=== PATIENT | female | born 1990 | race Caucasian/White ===

== ENCOUNTER → 2018-03-12 | Outpatient (CLI) | payer OTHER | END | disposition home or self-care (01) | LOC: C.LAB1850 16:59 | PROVIDERS: ATTEND Obstetrics & Gynecology | DX: Z34.82 Encounter for supervision of other normal pregnancy, second trimester (principal); Z34.81 Encounter for supervision of other normal pregnancy, first trimester ==

== ENCOUNTER 2018-03-31 14:34 | Emergency (ER) | payer OTHER ==
[~2018-03-31] VITALS: Ht 157.5 cm; Wt 61.3 kg
[2018-03-31 14:57] VITALS: TEMP 37; Ht 157.5 cm; Wt 61.3 kg
[2018-03-31] MEDS ORDERED: CEPH500C PO (16:08)
[2018-03-31 16:56] VITALS: BP 123/81; PULSE 91; O2SAT 99
--- NOTE | 2018-03-31 21:12 | EMERGENCY ROOM VISIT NOTE ---
History First contact with patient: 15:12 (Gurpreet Evangelista,P.A.) First contact with patient: 15:12 (Mu Jimenes M.D.) Chief Complaint: TOE PAIN, INJURY Stated Complaint: TOE INJURY, UTI History of Present Illness The patient is a 27 year old white female who presents to the Emergency Room with complaints of UTI symptoms for the past day and right great toe pain after hitting the toe when opening a door. She states the toenail seem to lift off and since then it has been draining a clear fluid around the edges. She would like to be sure it is not infected. No other toes are involved. She denies any foot pain. Her only pain is in the great toe. No prior history of toe injury. Her urinary symptoms consist of urgency, frequency, and burning. She is 19 weeks . She denies any ronel blood. No back pain. No fevers or chills. No nausea or vomiting. (Gurpreet Evangelista,P.A.) Review of Systems REVIEW OF SYSTEM: HEENT: No dizziness, visual problems, hearing loss, or tinnitus. There is no difficulty swallowing and no oral lesions are present. LYMPH: No adenopathy. PULMONARY: No cough, shortness of breath, sputum production or hemoptysis. CARDIOVASCULAR: No chest pain, palpitations, shortness of breath or peripheral edema. GASTROINTESTINAL: No diarrhea, constipation, nausea, vomiting, or abdominal pain. GENITOURINARY: Positive dysuria, frequency, urgency but no hematuria today. NEUROLOGIC: No weakness, muscle tenderness, epilepsy or history of neurological problems. MUSCULOSKELETAL: No history of joint tenderness/swelling. No history of arthritis or arthralgias. SKIN: No rashes or lesions. PSYCHIATRIC: No history of depression or mental illness. ENDOCRINE: No history of diabetes, thyroid disorders, or abnormal hair growth. (Gurpreet Evangelista.,P.A.) Family History Unremarkable (Gurpreet Evangelista,P.A.) Social History Smoking Status: Never Smoker Smokeless Tobacco Use: No Alcohol Use: none Drug Use: none Marital Status: Housing Status: lives with family Occupation Status: employed (Gurpreet Evangelista,P.A.) Current/Historical Medications Scheduled Cephalexin Monohydrate (Keflex), 500 MG PO QID Physical Exam Vital Signs Date Time Temp Pulse Resp B/P (MAP) Pulse Ox O2 Delivery O2 Flow Rate FiO2 03/31/18 16:56 91 18 123/81 99 03/31/18 14:57 37.0 110 18 125/86 98 Room Air (Mu Jimenes M.D.) Physical Exam General: Well-developed, well-nourished, young petite white female, in no acute distress. Sitting on a bed. Alert and oriented. Skin: Warm and dry with good turgor. No rashes or lesions. No ecchymosis or erythema. The patient is not diaphoretic. No abrasions. Right great toenail is loose but in place. There is clear serous fluid draining around the edges. No purulence. Heart: Heart RRR. No MGR. Peripheral pulses are 2+. Lungs: Lungs are clear to auscultation. No crackles rhonchi or wheezing. Good air movement. The patient is able to take a deep breath. Abdomen: Abdomen was inspected, auscultated, and palpated. Visibly . Bowel sounds present x 4. Soft, suprapubic discomfort to palpation. No hepato- splenomegaly. No masses noted. No rebound. No CVA tenderness. Musculoskeletal: Patient has intact motor function to her toes. No pain with palpation over the hindfoot, midfoot, or forefoot. No pain with palpation over the second through fifth digits. She does have some discomfort with palpation over the nail itself but no pain with palpation over the proximal phalanx or distal phalanx of the great toe. Intact flexion and extension to the great toe. Ambulatory with no significant limp. Neurologic: Gross sensation is intact across the foot and toes by soft touch. (Gurpreet Evangelista,P.A.) Medical Decision & Procedures Laboratory Results Test 03/31/18 15:23 Urine Color YELLOW Urine Appearance TURBID (CLEAR) Urine pH 5.0 (4.5-7.5) Urine Specific [place] 1.016 (1.000-1.030) Urine Protein 1+ (NEG) Urine Glucose (UA) NEG (NEG) Urine Ketones NEG (NEG) Urine Occult Blood 3+ (NEG) Urine Nitrite NEG (NEG) Urine Bilirubin NEG (NEG) Urine Urobilinogen NEG (NEG) Urine Leukocyte Esterase LARGE (NEG) Urine WBC (Auto) >30 /hpf (0-5) Urine RBC (Auto) >30 /hpf (0-4) Urine Hyaline Casts (Auto) 1-5 /lpf (0-5) Urine Epithelial Cells (Auto) >30 /lpf (0-5) Urine Bacteria (Auto) 3+ (NEG) Urine Pathogenic Casts /lpf (0) Urine Yeast (Auto) PRESENT (NONE PRSENT) (Mu Jimenes M.D.) UA obtained today shows WBCs, RBCs, bacteria, and yeast. This was sent for culture. (Gurpreet Evangelista,P.A.) ED Course Patient was educated regarding today's findings. Conservative care measures were discussed. She was reassured that I do not suspect fracture of the great toe. She has avulsed the nail. It is currently in place. She may continue to wrap it with nonstick tape to keep it in place until a new nail grows out. Continue to cleanse with soap and water daily and cover with triple antibiotic ointment. In regards to her UTI, she was prescribed Keflex 500 mg 3 times a day 5 days due to her current . She is allergic to Bactrim. 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 Tylenol every 6 hours as needed for discomfort. Avoid Motrin. Return to the ED for any acute worsening of symptoms. (Gurpreet Evangelista,P.A.) Medical Decision Possibility of toe fracture, laceration, kidney stone, UTI, and nephritis were considered among others (Gurpreet Evangelista.,P.A.) Medication Reconcilliation Current Medication List: was personally reviewed by me (Gurpreet Evangelista.,P.A.) Blood Pressure Screening Patient's blood pressure: Normal blood pressure (Gurpreet Evangelista,P.A.) Impression Primary Impression: Contusion of great toe with damage to nail Additional Impression: UTI (urinary tract infection) in in second trimester Departure Information Dispostion Home / Self-Care Condition GOOD Prescriptions Cephalexin Monohydrate (Keflex) 500 Mg Cap 500 MG PO QID, #28 CAP Prov: Gurpreet Evangelista,P.A. 8/25/18 Forms WORK / SCHOOL INSTRUCTIONS, HOME CARE DOCUMENTATION FORM, TYLENOL USE, IMPORTANT VISIT INFORMATION Patient Instructions My [facility] [employer] Additional Instructions Keflex 1 pill 4 times a day times 7 days Follow-up with your PCP this week Maintain hydration Cover the toenail with triple antibiotic ointment and tape in place Avoid further trauma Tylenol every 6 hours as needed for discomfort Ice and elevate intermittently as needed for any discomfort/swelling Return to the ED as needed for any other concerns Problem Qualifiers Primary Impression: Contusion of great toe with damage to nail Encounter type: initial encounter Laterality: right Qualified Codes: S90.211A - Contusion of right great toe with damage to nail, initial encounter
--- NOTE | 2018-04-02 20:01 | Pharmacy Progress Note ---
ED Pharmacist Culture FollowUp Date of Service: Apr 02, 2018. OF NOTE THIS PATIENT IS 19 WEEKS Patient was sent home with a prescription for cephalexin which will not cover the Staph saprophyticus isolated in her urine culture. Called patient. Reports that the pain in her toe has decreased, but her urinary symptoms have not significantly improved. I inquired about back pain and patient noted that she does have back pain but she also has a history of back surgery. She notes the current pain is different than her usual back pain and is located on "the sides" of her back. I spoke with Dr. Ramos r/e the above who recommended the patient return to the ED to be re-evaluated. I strongly encouraged the patient to return to the ED tonight for re- evaluation. At that time, patient also noted that she may be "overthinking" this, but that she normally feels a "significant amount" of movement, which may have decreased. I once again stressed the importance of returning to the ED for re-evaluation immediately. Patient acknowledged understanding and noted intent to return to ED tonight.
== END 2018-03-31 16:49 | disposition home or self-care (01) ==
LOC: C.EDB 14:36 → C.EDD 16:49
DX: S90.211A Contusion of right great toe with damage to nail, initial encounter (principal); W22.8XXA Striking against or struck by other objects, initial encounter; O23.42 Unspecified infection of urinary tract in pregnancy, second trimester; Z3A.19 19 weeks gestation of pregnancy; Z88.1 Allergy status to other antibiotic agents

== ENCOUNTER 2018-04-02 20:30 | Outpatient (CLI) | payer OTHER ==
[~2018-04-02 20:30] MED LIST: CEPH500C PO
== END 2018-04-02 20:58 | disposition home or self-care (01) ==
LOC: C.OPB 20:30 → C.LD 20:30 → C.OPB 20:58
PROVIDERS: ATTEND Obstetrics & Gynecology
DX: O23.42 Unspecified infection of urinary tract in pregnancy, second trimester (principal); Z3A.19 19 weeks gestation of pregnancy

== ENCOUNTER 2018-08-13 07:41 | Inpatient (IN) ==
[2018-08-13] MEDS ORDERED: OXYTOCIN 30 UNITS/500 ML BAG IV PRN ×3 (08:10→15:49)
[2018-08-13] MEDS ORDERED: LACTATED RINGER'S 1,000 ML IV PRN ×3 (08:10→13:49)
[2018-08-13 08:31] LABS: Hematocrit (blood only) 32.2 % (37-47); Hemoglobin 10.5 g/dL (12.0-16.0); Mean Corpuscular Volume 77.6 fL (80-100); Mean Platelet Volume 9.5 fL (7.4-10.4); Platelet Count 214 K/uL (130-400); RDW Coefficient of Variation 16.1 % (11.5-14.5); Red Blood Count 4.15 M/uL (4.2-5.4); White Blood Count 13.06 K/uL (4.8-10.8)
[2018-08-13 08:35] LABS: Mean Corpuscular Hgb Conc 32.6 g/dL (32-36)
--- NOTE | 2018-08-13 09:22 | History & Physical Report ---
Date of Service August 13, 2018 Assessment & Plan (1) Encounter for induction of labor: 27 year old, @ 38.1 weeks gestation with complication of chronic HTN; Gestational DM requiring insulin and well controlled. She is A+ , GBS (-), rubella immune. Here for scheduled IOL for cHTN. Plan pitocin augmentation, arom as appropriate, patient's pain management plan is to defer epidural but will be available upon request Fetus category 1 (2) 38 weeks gestation of : continue with planned induction of labor (3) Insulin controlled gestational diabetes mellitus (GDM) in third trimester: continue with home meds, Novolin 8qHS and Novolog 10 units TID monitor BSGs (4) Chronic hypertension affecting : vitals stable here, continue to monitor History of Present Illness Chief Complaint: Induction of Labor Primary Care Provider: NO PCP Ebony Frostashleigh is 27 year old, @ 38.1 weeks gestation with EDC of via U/S, with complication of chornic HTN; Gestational DM requiring insulin and well controlled. She is A+, GBS (-), rubella immune. She states that she still feels baby moving, denies vaginal bleeding or fluid from vagina. Pain management plan is to defer epidural. She has had care with [facility] starting at 7 weeks x 17 appointments. She states her GDM has been well controlled with insulin, denies any episodes of hypoglycemia. She notes a recent upper respiratory cold that has resolved. She does have a history of Bipolar disorder that was treated with Lamictal but discontinued during approximately 12 weeks gestation. Labs: A+/ab-/rubella immune/rpr non-reactive/hepB negative/GC negative?GBS negative Allergies Allergy/AdvReac Type Severity Reaction Status Date / Time Sulfa (Sulfonamide Allergy Intermediate Hives Verified 08/13/18 09:53 Antibiotics) Home Medications Home Medications Medication Instructions Recorded Confirmed Type ferrous sulfate 0 mg PO DAILY 06/05/18 08/13/18 History vit-iron fum-folic ac 1 tab PO DAILY 06/05/18 08/13/18 History [ Vitamin] Novolin N NPH U-100 Insulin 8 units SC HS 08/13/18 08/13/18 History Novolog Flexpen U-100 Insulin 10 unit SC TID 08/13/18 08/13/18 History Patient History Medical History Bipolar 1 disorder was on medications but stopped taking due to . Wants to breastfeed so does not want to start medications again until she is done Suicidal ideations several in past; last ideation was May 2018- pt was hospitalized. Pt says it is situational and this past incident was relationship related. Pt says this is better now. Anxiety Depression Fibroadenoma of left breast Removed ~3 years ago Gestational diabetes Insulin controlled H/O tooth extraction H/O wisdom tooth extraction Heart murmur history of heart murmur Hypertension Chronic Hypertension prior to ; was on Metoprolol in past but bipolar meds lowered her BP. Migraines Tachycardia Surgical History Hx of lumbar discectomy December 2016 Family History Father HTN (hypertension) Mother Colon cancer Other Family history non-contributory Social History marital status: Single Current Living Situation: Alone Current Living Situation Comment: lives with son Feels Safe at Home: Yes Safety Concerns: Feels Safe At This Time Smoking Status: Former smoker Tobacco Type: cigarettes Do You Dip or Chew Tobacco: No Smoking End Date: September 2016 Hx Alcohol Use: No Hx Substance Use: No Beliefs That Will Affect Care: None Preferred Language: Georgian Communication Ability: Effective Liquor Rectifier Required: No OB History @ 38.1 weeks gestation 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 History No history of STDs or abnormal paps Review of Systems All systems reviewed & are unremarkable except as noted in HPI & below Physical Exam 2 Vital Signs (Past 24 Hours): Last Vital Signs Temp 36.6 C 08/13/18 08:05 Pulse 111 H 08/13/18 08:15 Resp 20 08/13/18 08:05 BP 135/89 08/13/18 08:15 Constitutional: WD/WN, vitals as above cooperative Eyes: + anicteric sclerae Neck: normal visual inspection Respiratory: normal respiratory effort, lungs clear to auscultation Cardiovascular: RRR, no murmur, no edema Gastrointestinal (Abdomen): Percussion/Palpation: abdomen nontender Gravid Skin: no rashes, warm and dry Neurologic: moves all extremities and awake Psychiatric: Orientation: alert Eye Contact: good eye contact Affect: euthymic affect Genitourinary: OB Exam Monitor Tracing: + external FHT monitor used, + external uterine monitor used and + category I Cervical Exam performed by Dr. Kirkland with findings of 1+cm/50%/-2 Results & Data Laboratory Results Laboratory Results - last 24 hr 08/13/18 08:16 WBC 13.06 H RBC 4.15 L Hgb 10.5 L Hct 32.2 L MCV 77.6 L MCH 25.3 MCHC 32.6 RDW Std Deviation 46.0 RDW Coeff of Renee 16.1 H Plt Count 214 MPV 9.5 Medications Administered Lactated Ringer's (Lr) 1,000 mls @ 125 mls/hr IV .Q8H TRAVIS Stop: 08/15/18 08:14 Last Admin: 08/13/18 09:25 Dose: 125 mls/hr Oxytocin (Pitocin) 30 units in 500 mls @ 1 mls/hr IV .Q24H PRN; Protocol PRN Reason: Labor Induction/Augmentation Stop: 08/15/18 08:09 Last Admin: 08/13/18 09:25 Dose: 0.06 units/hr, 1 mls/hr Code Status & VTE Plan Code Status Full Code Monitoring External Monitor Baseline 145 w/moderate variability, accels present, no decels Tocodynamometer mild irregular contractions Supervising Physician Co-Signing Physician Notes Resident Physician Supervision Note: I was present with Dr. Esdras Coleman during the history and exam. I discussed the case with the resident and agree with the findings and plan as documented in the note. Any exceptions or clarifications are listed here: [None] Documented By: Catherine Kirkland MD, FACOG
[2018-08-13] MEDS: LACTATED RINGER'S 1,000 ML IV SCH ×2 (09:25→13:00)
[2018-08-13] MEDS ORDERED: BUPIVACAINE 0.25% 30 ML VIAL ONE (12:25)
[2018-08-13] MEDS ORDERED: ePHEDrine sulfate 50 MG/ML AMP ONE (12:26)
[2018-08-13] MEDS ORDERED: fentaNYL citrate 100 MCG/2 ML VIAL ONE (12:26)
[2018-08-13] MEDS ORDERED: fentaNYL 2MCG/ML ROPIV 1.25MG/ML 100 ML BAG EPI ONE (12:27)
--- NOTE | 2018-08-13 13:16 | Anesthesiology Consultation ---
Date of Service August 13, 2018 Assessment & Plan (1) Encounter for pre-operative examination: Chart Review Chart Review: Patient NOT seen in Pre Admission Testing and Acceptable Risk for Labor Epidural Consults Requested none ASA ASA2 Proposed Anesthesia Anesthesia Type: Labor Epidural Risk / Benefits Reviewed With: PT / POA / Parent / Guardian, Accepts Plan and Informed Consent Obtained NPO Date Last Intake of Fluids: 08/13/18 Time Last Intake of Fluids: 13:15 Date Last Intake of Solids: 08/13/18 Time Last Intake of Solids: 06:15 History Height/Weight Height: 5 ft 2 in Weight: 70.76 kg Allergies Allergy/AdvReac Type Severity Reaction Status Date / Time Sulfa (Sulfonamide Allergy Intermediate Hives Verified 08/13/18 09:53 Antibiotics) Medications Home Medications Medication Instructions Recorded Confirmed Last Taken ferrous sulfate 0 mg PO DAILY 06/05/18 08/13/18 08/10/18 22:00 vit-iron fum-folic ac 1 tab PO DAILY 06/05/18 08/13/18 08/12/18 18:00 [ Vitamin] Novolin N NPH U-100 Insulin 8 units SC HS 08/13/18 08/13/18 08/12/18 22:00 Novolog Flexpen U-100 Insulin 10 unit SC TID 08/13/18 08/13/18 08/12/18 19:30 10 units Active Medications Generic Name Dose Route Start Last Admin Trade Name Freq PRN Reason Stop Dose Admin Lactated Ringer's 1,000 mls @ 125 mls/hr 08/13/18 08:15 08/13/18 13:00 Lr IV 08/15/18 08:14 125 mls/hr .Q8H TRAVIS Administration Oxytocin 30 units in 500 mls @ 9 mls/hr 08/13/18 08:10 08/13/18 12:00 Pitocin IV 08/15/18 08:09 0.54 units/hr .Q24H PRN 9 mls/hr Labor Induction/Augmentation Titration Protocol 0.54 UNITS/HR Past Medical History Medical History Bipolar 1 disorder was on medications but stopped taking due to . Wants to breastfeed so does not want to start medications again until she is done Suicidal ideations several in past; last ideation was May 2018- pt was hospitalized. Pt says it is situational and this past incident was relationship related. Pt says this is better now. Anxiety Depression Fibroadenoma of left breast Removed ~3 years ago Gestational diabetes Insulin controlled H/O tooth extraction H/O wisdom tooth extraction Heart murmur history of heart murmur Hypertension Chronic Hypertension prior to ; was on Metoprolol in past but bipolar meds lowered her BP. Migraines Tachycardia Past Family History Family History Father HTN (hypertension) Mother Colon cancer Other Family history non-contributory Past Surgical History Surgical History Hx of lumbar discectomy December 2016 Social History Smoking Status: Former smoker tobacco type: cigarettes Do You Dip or Chew Tobacco: No Smoking End Date: September 2016 Hx Alcohol Use: No Hx Substance Use: No Physical Exam Vital Signs Last Vital Signs Temp 36.6 C 08/13/18 08:05 Pulse 100 H 08/13/18 13:12 Resp 20 08/13/18 10:29 BP 129/79 08/13/18 13:12 Pulse Ox 100 08/13/18 13:08 ENMT Mouth: no dentition abnormality Thyromental Distance: > or= 3.5 Finger Breadths Mallampati Class: II Neck normal visual inspection; neck extension not limited Respiratory normal respiratory effort Auscultation: lungs clear to auscultation bilaterally Cardiovascular Rate/Rhythm: regular rate and regular rhythm Musculoskeletal Spine: normal cervical ROM Psychiatric Orientation: alert and oriented x 3 Testing Laboratory Results 08/13/18 08:16
[2018-08-13] MEDS ORDERED: fentaNYL 2MCG/ML ROPIV 1.25MG/ML 100 ML BAG EPI PRN (13:49)
[2018-08-13] MEDS ORDERED: NALOXONE HCL 0.4 MG/1 ML VIAL/CARP IV PRN (13:49)
[2018-08-13] MEDS ORDERED: PROMETHAZINE HCL 6.25 MG in SODIUM CHLORIDE 0.9% 50 ML IV PRN (13:49)
[2018-08-13] MEDS ORDERED: ONDANSETRON INJ 2 MG/ML 2 ML VIAL IV PRN (13:49)
[2018-08-13] MEDS ORDERED: NALBUPHINE HCL INJ 10 MG/ML AMP IV PRN (13:49)
[2018-08-13] MEDS ORDERED: NALOXONE HCL 1 MG in SODIUM CHLORIDE 0.9% 1000ML 1,000 ML IV PRN (13:49)
[2018-08-13] MEDS ORDERED: ePHEDrine sulfate 50 MG/ML AMP IV PRN (13:49)
[2018-08-13] MEDS ORDERED: DiphenhydrAMINE HCL 50 MG/ML VIAL IV PRN (13:49)
[2018-08-13] MEDS ORDERED: HYDROCORTISONE ACETATE 25 MG SUPP PR PRN (15:49)
[2018-08-13] MEDS ORDERED: BENZOCAINE 20% AER SPR 82.5 GM CAN EXT PRN (15:49)
[2018-08-13] MEDS ORDERED: SUPERCREAM 0.870% 15 GM JAR EXT PRN (15:49)
[2018-08-13] MEDS ORDERED: DIPHTHERIA/TETANUS/PERTUSSIS 0.5 ML SYR/VIAL IM ONE (15:49)
[2018-08-13] MEDS ORDERED: ACETAMINOPHEN 325 MG TAB PO PRN (15:49)
[2018-08-13 16:13] LABS: Base Excess Cord Arterial Bld -3.9 mEq/L (-9-1.8); CO2 Cord Arterial Blood 49 mmHg (39.1-73.5); HCO3 Cord Arterial Blood 23 mmol/L (19.7-28.5); pH Cord Arterial Blood 7.29 (7.1-7.38)
[2018-08-13 16:23] LABS: Base Excess Cord Venous Blood -2.3 mEq/L (-7.7-1.9); Cord Venous Blood HCO3 23 mmol/L (18.4-26.8); Cord Venous Blood PCO2 44 mmHg (30.4-57.2); Cord Venous Blood PO2 27 mmHg (14.1-43.3); Cord Venous Blood pH 7.35 (7.20-7.44)
--- NOTE | 2018-08-13 16:30 | Anesthesia Procedure Note ---
Date of Service August 13, 2018 Anesthesia Post Epidural Note Vital Signs Vital Signs: Temp Pulse Resp BP Pulse Ox 08/13/18 16:18 110 H 136/71 08/13/18 16:03 117 H 149/66 H 08/13/18 15:48 124 H 154/74 H 97 08/13/18 15:43 135 H 98 08/13/18 15:39 173 H 91 08/13/18 15:38 147 H 100 08/13/18 15:35 153 H 141/91 H 08/13/18 15:33 136 H 100 08/13/18 15:28 154 H 100 08/13/18 15:23 133 H 99 08/13/18 15:21 118 H 131/90 08/13/18 15:18 116 H 100 08/13/18 15:08 141 H 98 08/13/18 15:04 116 H 149/98 H 08/13/18 15:03 167 H 98 08/13/18 15:00 36.4 C L 130 H 18 97 08/13/18 14:58 125 H 99 08/13/18 14:53 118 H 98 08/13/18 14:49 139 H 124/78 08/13/18 14:48 138 H 97 08/13/18 14:43 147 H 98 08/13/18 14:38 120 H 98 08/13/18 14:34 129 H 134/88 08/13/18 14:33 180 H 98 08/13/18 14:28 148 H 99 08/13/18 14:23 149 H 98 08/13/18 14:19 136 H 129/77 92 08/13/18 14:18 128 H 98 08/13/18 14:13 121 H 97 08/13/18 14:08 155 H 99 08/13/18 14:05 146 H 126/98 91 08/13/18 14:03 168 H 99 08/13/18 13:58 121 H 100 08/13/18 13:53 114 H 99 08/13/18 13:49 116 H 109/62 08/13/18 13:48 98 H 97 08/13/18 13:43 130 H 99 08/13/18 13:38 94 H 98 08/13/18 13:34 109 H 20 121/62 08/13/18 13:33 115 H 98 08/13/18 13:28 123 H 99 08/13/18 13:27 96 H 122/63 08/13/18 13:23 101 H 118/62 97 08/13/18 13:18 106 H 98 08/13/18 13:16 103 H 124/73 08/13/18 13:14 94 H 132/78 08/13/18 13:13 102 H 98 08/13/18 13:12 100 H 129/79 08/13/18 13:10 96 H 139/83 08/13/18 13:08 93 H 148/84 H 100 08/13/18 13:07 96 H 142/84 H 08/13/18 13:03 102 H 99 08/13/18 12:58 97 H 99 08/13/18 12:57 103 H 90 08/13/18 12:53 90 97 08/13/18 12:48 91 H 99 08/13/18 12:43 89 99 08/13/18 12:42 91 H 153/92 H 08/13/18 12:07 117 H 121/84 08/13/18 10:30 101 H 133/90 08/13/18 10:29 20 08/13/18 09:29 96 H 128/76 08/13/18 08:15 111 H 135/89 08/13/18 08:05 36.6 C 100 H 20 145/74 H 08/13/18 08:00 100 H 145/74 H 08/13/18 07:47 36.6 C 20 Pain Intensity Bilateral Abdomen: Pain Intensity: 6 Notes Mental Status: alert / awake / arousable Nausea / Vomiting: adequately controlled Pain: adequately controlled Airway Patency, RR, SpO2: stable & adequate BP & HR: stable & adequate Hydration State: stable & adequate Anesthetic Complications: no major complications apparent Epidural: Removed without complications and With tip intact
--- NOTE | 2018-08-13 18:48 | Delivery Summary ---
DATE OF OPERATION: 08/13/2018 VAGINAL DELIVERY NOTE Ebony was induced on 08/13/2018 for chronic hypertension, gestational diabetes on insulin at 38 weeks and 1 day. Cervix was initially 2 cm. IV Pitocin started. AROM then performed for clear fluid. Patient requested epidural and became fully dilated and pushed over a baby over occiput anterior position. No nuchal cord. Mouth and nares suctioned. Clear fluid, gentle traction, no excessive force. Live vigorous . Cord clamped and cut. Cord gas is obtained. Cord blood obtained. Placenta removed with gentle traction. IV Pitocin started. Second degree tear repaired with 3-0 Vicryl. Sponge and instrument counts correct. IV Pitocin had been started after delivery of placenta. Estimated blood loss 300 mL. I attest to the content of the Intraoperative Record and any orders documented therein. Any exception s are noted below.
[2018-08-13] MEDS: IBUPROFEN 600 MG TAB PO PRN (21:54)
[2018-08-13] MEDS: DOCUSATE SODIUM 100 MG CAP PO SCH (22:17)
[2018-08-13] MEDS: OXYCODONE/ACETAMINOPHEN 5mg/325mg TAB PO PRN (23:42)
[2018-08-14] MEDS: IBUPROFEN 600 MG TAB PO PRN ×2 (04:36→11:53)
[2018-08-14] MEDS: OXYCODONE/ACETAMINOPHEN 5mg/325mg TAB PO PRN (05:28)
--- NOTE | 2018-08-14 07:35 | Obstetrical Progress Note ---
Date of Service <Esdras Coleman DO - Last Filed: 08/14/18 07:35> August 14, 2018 Assessment & Plan <Esdras Coleman DO - Last Filed: 08/14/18 07:35> (1) Spontaneous vaginal delivery: PPD#1 doing well and would like to be discharged home today reviewed discharge instructions continue routine post care until discharge home (2) Encounter for induction of labor: 27 year old, @ 38.1 weeks gestation with complication of chronic HTN; Gestational DM requiring insulin and well controlled. She is A+ , GBS (-), rubella immune. Here for scheduled IOL for cHTN. Plan pitocin augmentation, arom as appropriate, patient's pain management plan is to defer epidural but will be available upon request Fetus category 1 (3) 38 weeks gestation of : had planned induction of labor delivered via nvd (4) Insulin controlled gestational diabetes mellitus (GDM) in third trimester: monitor BSGs (5) Chronic hypertension affecting : vitals stable here, continue to monitor Subjective <Esdras Coleman DO - Last Filed: 08/14/18 07:35> Ambulation: ambulating normally Voiding: no voiding problems Passing Gas:: Yes Diet Tolerance:: regular diet Lochia:: Small Feeding Type:: breast feeding Ebony states she is doing well this morning, no fevers, chills, chest pain, shortness of breath, nausea or vomiting. Physical Exam <Esdras Coleman DO - Last Filed: 08/14/18 07:35> Vital Signs (Past 24 Hours) Last Vital Signs Temp 36.4 C L 08/14/18 04:30 Pulse 92 H 08/14/18 04:30 Resp 20 08/14/18 04:30 BP 140/91 08/14/18 04:30 Pulse Ox 98 08/14/18 04:30 Constitutional WD/WN, vitals as above cooperative Eyes + anicteric sclerae Neck normal visual inspection Respiratory normal respiratory effort, lungs clear to auscultation Cardiovascular RRR, no murmur, no edema Gastrointestinal (Abdomen) Percussion/Palpation: abdomen nontender fundus is firm non-tender, 4cm below umbilicus Skin no rashes, warm and dry Neurologic moves all extremities and awake Psychiatric Orientation: alert Eye Contact: good eye contact Affect: euthymic affect Results & Data <Esdras Coleman, DO - Last Filed: 08/14/18 07:35> Laboratory Results Laboratory Results - last 24 hr 08/13/18 08/13/18 08/13/18 08:16 09:03 12:40 WBC 13.06 H RBC 4.15 L Hgb 10.5 L Hct 32.2 L MCV 77.6 L MCH 25.3 MCHC 32.6 RDW Std Deviation 46.0 RDW Coeff of Renee 16.1 H Plt Count 214 MPV 9.5 Cord ABG pH Cord ABG pCO2 Cord ABG pO2 Cord ABG HCO3 Cord ABG Base Excess Cord ABG O2 Sat Cord VBG pH Cord VBG pCO2 Cord VBG pO2 Cord VBG HCO3 Cord VBG Base Excess Cord VBG O2 Sat Barometric Pressure Blood Gas Comments POC Glucose 95 79 08/13/18 08/13/18 08/13/18 14:42 15:39 15:39 WBC RBC Hgb Hct MCV MCH MCHC RDW Std Deviation RDW Coeff of Renee Plt Count MPV Cord ABG pH 7.29 Cord ABG pCO2 49 Cord ABG pO2 26.0 Cord ABG HCO3 23 Cord ABG Base Excess -3.9 Cord ABG O2 Sat 61.0 H Cord VBG pH 7.35 Cord VBG pCO2 44 Cord VBG pO2 27 Cord VBG HCO3 23 Cord VBG Base Excess -2.3 Cord VBG O2 Sat 63.0 Barometric Pressure 737.5 737.6 Blood Gas Comments FONTANEZ FONTANEZ POC Glucose 85 Medications Administered Acetaminophen (Tylenol) 650 mg PO Q6H PRN PRN Reason: Pain/BLEVINS/Fever Stop: 09/12/18 15:48 Last Admin: 08/13/18 16:07 Dose: 650 mg Cocaine HCl (Supercream 0.870%) 1 gm EXT BID PRN PRN Reason: Hemorrhoidal Inflammation Stop: 08/27/18 15:48 Last Admin: 08/13/18 23:32 Dose: 1 appl Docusate Sodium (Colace) 100 mg PO BID [facility] Stop: 09/12/18 20:59 Last Admin: 08/13/18 22:17 Dose: 100 mg Lactated Ringer's (Lr) 1,000 mls @ 125 mls/hr IV .Q8H TRAVIS Stop: 08/15/18 08:14 Last Admin: 08/13/18 13:00 Dose: 125 mls/hr Infusion: 08/13/18 13:00 Dose: 999 mls/hr Infusion: 08/13/18 12:40 Dose: 999 mls/hr Admin: 08/13/18 09:25 Dose: 125 mls/hr Ibuprofen (Motrin) 600 mg PO Q4H PRN PRN Reason: Pain/BLEVINS/Cramping/Fever Stop: 09/12/18 15:48 Last Admin: 08/14/18 04:36 Dose: 600 mg Admin: 08/13/18 21:54 Dose: 600 mg Oxycodone/Acetaminophen (Percocet 5mg/325mg) 1 tab PO Q4H PRN PRN Reason: Pain not relieved by... Stop: 08/27/18 15:48 Last Admin: 08/14/18 05:28 Dose: 1 tab Admin: 08/13/18 23:42 Dose: 1 tab <Keven Hough MD, FACOG - Last Filed: 08/14/18 07:51> Co-Signing Physician Notes Resident Physician Supervision Note: I interviewed and examined the patient. Discussed with [Jared] and agree with findings and plan as documented in the note. Any exceptions or clarifications are listed here: [None] Documented By: Keven Hough MD, FACOG
[2018-08-14 08:07] LABS: Hematocrit (blood only) 30.6 % (37-47); Hemoglobin 9.9 g/dL (12.0-16.0); Mean Corpuscular Hgb Conc 32.4 g/dL (32-36); Mean Corpuscular Volume 77.9 fL (80-100); Mean Platelet Volume 9.8 fL (7.4-10.4); Platelet Count 185 K/uL (130-400); RDW Coefficient of Variation 16.1 % (11.5-14.5); RDW Standard Deviation 46.1 fL (36.4-46.3); Red Blood Count 3.93 M/uL (4.2-5.4); White Blood Count 14.33 K/uL (4.8-10.8)
[2018-08-14] MEDS ORDERED: PRENATAL VITAMIN 1 TAB PO SCH (09:00)
[2018-08-14] MEDS: DOCUSATE SODIUM 100 MG CAP PO SCH (09:17)
--- NOTE | 2018-08-14 12:48 | Psychiatric Consultation ---
Date of Consultation August 14, 2018 Impression / Recommendations Impression 27 yo CF with h/o bipolar II, depression and anxiety, s/p delivery admitted for child . Psychiatry consulted for possible starting of medications that patient had stopped during . Patient seems to be with euthymic mood and declines medications at this time in favor of outpatient follow up. She denied Si/Hi/aVH and no major depressive, manic or psychotic symptoms were apparent. She was informed of recommendation and benefits of starting medications and also of the risks and benefits related to breast feeding. The patient declined medications. Boyfriend and father of the baby who was in room with permission of patient seemed to be supportive and both state he has a month off work to help with new mom transition. Outpatient follow up was offered to which patient agreed. 1. History of Bipolar II: - Offered Lamictal and Lexapro, patient declines medications at this time - No acute safety concerns and patient does not meet criteria for inpatient admission - Psych liason nurse to assist with scheduling outpatient follow up Inventory Assets Strengths: new child, future oriented, supportive relationship, employed Needs: meds, therapy Risk Factors Assessment Male: No : Yes Do You Have Access To A Gun?: No Health Problems: No Mental Health Diagnoses: Yes Substance Use Disorders: No Previous Attempt: Yes Previous Psychiatric Hospitalization: Yes Hopelessness: No Protective Factors Assessment Responsible for Young Children: Yes Employed: Yes Stable Relationships: Yes CPT Code 57415 Psych History Chief Complaint Consideration of medications. History of Present Illness 27 yo CF with h/o bipolar II, depression and anxiety, s/p delivery admitted for child . Psychiatry consulted for possible starting of medications that patient had stopped during . Patient stated that her mood has been stable and she denies any irritability, difficulty sleeping or any mood changes "aside from normal stuff with and ". She denied Si/Hi/aVH and states that the babies father is supportive. She states was taking Lamictal and Lexapro but that she does not want to start medications at this time. Would like to obtain a follow up for a couple weeks out and consider at that time. She states she would like to be back on meds before she starts working in a couple months, but not immediately. The boyfriend in the room denied any concerns and states that he has a month off of work to help with the baby. Past Psychiatric History Do You Have Access To A Gun?: No Allergies Allergy/AdvReac Type Severity Reaction Status Date / Time Sulfa (Sulfonamide Allergy Intermediate Hives Verified 08/13/18 09:53 Antibiotics) Home Medications Home Medications Medication Instructions Recorded Confirmed Type ferrous sulfate 0 mg PO DAILY 06/05/18 08/13/18 History vit-iron fum-folic ac 1 tab PO DAILY 06/05/18 08/13/18 History [ Vitamin] Novolin N NPH U-100 Insulin 8 units SC HS 08/13/18 08/13/18 History Novolog Flexpen U-100 Insulin 10 unit SC TID 08/13/18 08/13/18 History Personal History Born In: [place] Beliefs That Will Affect Care: None Patient History Medical History Bipolar 1 disorder was on medications but stopped taking due to . Wants to breastfeed so does not want to start medications again until she is done Suicidal ideations several in past; last ideation was May 2018- pt was hospitalized. Pt says it is situational and this past incident was relationship related. Pt says this is better now. Anxiety Depression Fibroadenoma of left breast Removed ~3 years ago Gestational diabetes Insulin controlled H/O tooth extraction H/O wisdom tooth extraction Heart murmur history of heart murmur Hypertension Chronic Hypertension prior to ; was on Metoprolol in past but bipolar meds lowered her BP. Migraines Tachycardia Surgical History Hx of lumbar discectomy December 2016 Family History Father HTN (hypertension) Mother Colon cancer Other Family history non-contributory Social History marital status: Single Current Living Situation: Alone Current Living Situation Comment: lives with son Feels Safe at Home: Yes Safety Concerns: Feels Safe At This Time Smoking Status: Former smoker Tobacco Type: cigarettes Do You Dip or Chew Tobacco: No Smoking End Date: September 2016 Hx Alcohol Use: No Hx Substance Use: No Beliefs That Will Affect Care: None Preferred Language: Ukrainian Communication Ability: Effective Surgical Assistant Certified Required: No Physical Exam Psychiatric A+Ox3, euthymic affect Apperance: appropriately dressed Eye Contact: good eye contact Motor Behavior: no abnormal motor movements Speech: normal rate/rhythm/volume of speech Affect: euthymic affect and mood congruent with affect Thought Process: linear/logical thought process Thought Content: not paranoid and no delusions Suicidal Thoughts: denies suicidal thoughts Homicidal Thoughts: denies homicidal thoughts Hallucinations: no auditory hallucinations and no visual hallucinations Cognition: recent memory grossly intact and remote memory grossly intact Estimated Intelligence: average estimated intelligence Insight: + fair insight Judgement: + fair judgement Vital Signs (Past 24 Hours) Last Vital Signs Temp 36.5 C 08/14/18 08:15 Pulse 81 08/14/18 08:15 Resp 16 08/14/18 08:15 BP 122/82 08/14/18 08:15 Pulse Ox 94 08/14/18 08:15 Results & Data Medications Administered Acetaminophen (Tylenol) 650 mg PO Q6H PRN PRN Reason: Pain/BLEVINS/Fever Stop: 09/12/18 15:48 Last Admin: 08/13/18 16:07 Dose: 650 mg Cocaine HCl (Supercream 0.870%) 1 gm EXT BID PRN PRN Reason: Hemorrhoidal Inflammation Stop: 08/27/18 15:48 Last Admin: 08/13/18 23:32 Dose: 1 appl Docusate Sodium (Colace) 100 mg PO BID [facility] Stop: 09/12/18 20:59 Last Admin: 08/14/18 09:17 Dose: 100 mg Admin: 08/13/18 22:17 Dose: 100 mg Lactated Ringer's (Lr) 1,000 mls @ 125 mls/hr IV .Q8H TRAVIS Stop: 08/15/18 08:14 Last Admin: 08/13/18 13:00 Dose: 125 mls/hr Infusion: 08/13/18 13:00 Dose: 999 mls/hr Infusion: 08/13/18 12:40 Dose: 999 mls/hr Admin: 08/13/18 09:25 Dose: 125 mls/hr Ibuprofen (Motrin) 600 mg PO Q4H PRN PRN Reason: Pain/BLEVINS/Cramping/Fever Stop: 09/12/18 15:48 Last Admin: 08/14/18 11:53 Dose: 600 mg Admin: 08/14/18 04:36 Dose: 600 mg Admin: 08/13/18 21:54 Dose: 600 mg Oxycodone/Acetaminophen (Percocet 5mg/325mg) 1 tab PO Q4H PRN PRN Reason: Pain not relieved by... Stop: 08/27/18 15:48 Last Admin: 08/14/18 05:28 Dose: 1 tab Admin: 08/13/18 23:42 Dose: 1 tab Prenat Multivit/[place]/Iron/Folic Ac ( Vitamin) [facility] [place] Stop: 09/13/18 08:59 Last Admin: 08/14/18 09:17 Dose: 1 tab
[2018-08-14] MEDS ORDERED: BISACODYL 5 MG TABEC PO SCH (20:00)
[2018-08-15] MEDS ORDERED: BISACODYL 10 MG SUPP PR PRN (06:00)
== END 2018-08-14 20:10 | disposition home or self-care (01) | DRG 806 ==
LOC: 4S1 07:41 → 4S2 18:30

== ENCOUNTER 2021-09-15 23:23 | Inpatient (IN) ==
--- NOTE | 2021-09-16 00:10 | Obstetrical Progress Note ---
Date of Service September 16, 2021 Assessment & Plan (1) Insulin controlled gestational diabetes mellitus (GDM) during : (2) Polyhydramnios affecting : (3) Uterine contractions during : Plan: 30 y/o at 38 2/7 wga presents w/ ctx -BPs slightly elevated however pt notes she is very anxious. There is a note of hx chtn prior to pregnancies but there were stressors in her life at that time that resolved and pcp confirmed normal bps with them so was deemed not chtn in this . Will continue to monitor, consider labs if persistent -NST reactive -3-3.5 on exam today, more than tues. Will let pt ambulate and see if progre ssion, aware that at 38 wks would not be able to augment if just labor Subjective 30 y/o at 38 2/7 wga presents w/ c/o ctx. +FM, had one episode of small amount of discharge in underwear this evening that did not continue. Denied VB. Reports ctx were q10 earlier this evening but felt a lot of pressure w/ them, became q8 and more uncomfortable and desired evaluation PNI: A2GDM Polyhydramnios hx cHTN Physical Exam Genitourinary: Manual OB Exam: + cervical dilation (3+), + cervical effacement 70% and + station -2 OB Exam Monitor Tracing: + external FHT monitor used, + external uterine monitor used (q4-7) and + category I (130/mod/+accel/-decel) Results & Data ([facility]) Vital Signs (Past 12 Hours) Vital Signs Temp Pulse Resp BP 09/16/21 00:00 93 H 140/98 09/15/21 23:47 120 H 132/98 09/15/21 23:41 97.7 F 104 H 18 144/93 H 09/15/21 23:37 104 H 144/93 H PG Care Time/CCT Total # of Minutes Spent Total Time Spent with Patient: Total time spent is greater than 50% in coordination of care (as documented) at patient's floor/unit and/or counseling patient: Coding Level of Care Code None Diagnoses Insulin controlled gestational diabetes mellitus (GDM) during O24.414 Polyhydramnios affecting O40.9XX0 Uterine contractions during O47.9
[2021-09-16 02:34] LABS: Hematocrit (blood only) 34.2 % (37-47); Hemoglobin 11.3 g/dL (12.0-16.0); Mean Corpuscular Hemoglobin 26.7 pg (25-34); Mean Corpuscular Volume 80.9 fL (80-100); Mean Platelet Volume 10.4 fL (7.4-10.4); Platelet Count 205 K/uL (130-400); RDW Coefficient of Variation 14.5 % (11.5-14.5); Red Blood Count 4.23 M/uL (4.2-5.4); White Blood Count 14.25 K/uL (4.8-10.8)
[2021-09-16 02:52] LABS: Basophils # (auto) 0.01 K/uL (0-0.2); Basophils % (auto) 0.1 %; Eosinophils # (auto) 0.06 K/uL (0-0.5); Eosinophils % (auto) 0.4 %; Immature Granulocytes # (auto) 0.04 K/uL (0.00-0.02); Immature Granulocytes % (auto) 0.3 %; Lymphocytes # (auto) 2.64 K/uL (1.2-3.4); Lymphocytes % (auto) 18.5 %; Monocytes # (auto) 1.13 K/uL (0.11-0.59); Monocytes % (auto) 7.9 %; Neutrophils # (auto) 10.37 K/uL (1.4-6.5); Neutrophils % (auto) 72.8 %; RBC Morphology Unremarkable
[2021-09-16 03:05] LABS: Albumin Level 3.2 gm/dl (3.4-5.0); Bilirubin,Total 0.5 mg/dl (0.2-1.0); Calcium 8.5 mg/dl (8.5-10.1); Creatinine Clr Calc Pharmacy 133.4 ml/min; Est GFR (African American) 142.2 ml/min; Est GFR (Non-African American) 122.7 ml/min; Globulin 3.2 gm/dl (2.5-4.0); Potassium 3.5 mmol/L (3.5-5.1); Total Protein 6.4 gm/dl (6.0-8.3)
[2021-09-16] MEDS ORDERED: OXYTOCIN 30 UNITS/500 ML BAG IV PRN ×2 (03:58→11:39)
--- NOTE | 2021-09-16 04:10 | History & Physical Report ---
Date of Service September 16, 2021 Assessment & Plan (1) Gestational hypertension: (2) Insulin controlled gestational diabetes mellitus (GDM) during : (3) Polyhydramnios affecting : Plan: 30 y/o at 38 2/7 wga now meeting criteria for ghtn Mild BPs, no severes currently Fetus cat 1 ghtn - pet labs wnl, UPC will be re-drawn as got completed as urine creatinine. Discussed the hx of chtn in the setting of now new elevated BPs. Pt notes that her anxiety improved however BPs have remained elevated and now meet criteria for ghtn. At this GA, rec would be for delivery w/ ghtn but would be in indicated delivery range for cHTN as well. Pt is amenable to plan and verbalized understanding A2GDM - q2h bg, q1h in labor labor - will start with pit GBS neg epidural PRN History of Present Illness Chief Complaint: HTN, DM Primary Care Provider: Aydee Plummer, DO 30 y/o at 38 2/7 wga presented earlier this evening for r/o labor. She was found to be 3-3.5 on exam, a change from monday but remained unchanged after a few hours. On arrival, bp was mild range w/ a mild repeat as well. This was initially attributed to anxiety as she appeared anxious and noted that she was as well regarding whether she was in labor or not. Subsequent checks remained elevated though and pt herself noted that she had even felt more relaxed during these later elevated BPs. BPs did meet criteria for gHTN with mild range BPs >4hrs apart. Of note, she was previously considered cHTN in prior pregnancies however provided documentation from her pcp that her previous htn was due ot stressors at that time and normalized after those stressors were removed so was not considered cHTN. 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 IOL at 38 wks for cHTN, A2GDM - G3 current q30d cycles 2020 ascus/HPV+ > colpo neg Denies hx stis Allergies Allergy/AdvReac Type Severity Reaction Status Date / Time Sulfa (Sulfonamide Allergy Intermediate Hives Verified 09/14/21 14:14 Antibiotics) Home Medications Medication Instructions Recorded Confirmed Type escitalopram oxalate 10 mg tablet 15 mg PO HS 10/29/19 09/16/21 History acetaminophen 325 mg tablet 650 mg PO DIRECTED PRN 02/08/20 09/16/21 History (Tylenol) cyclobenzaprine 5 mg tablet 5 mg PO DAILY PRN 08/17/20 09/16/21 History prenat.vits,aliyah,agb-tirp-qzvux PO 02/16/21 09/14/21 History ondansetron HCl 4 mg tablet 4 mg PO Q6H PRN #20 tab 02/20/21 09/16/21 Rx (Zofran) acetone (urine) test (Ketone Urine #50 ea 03/15/21 09/14/21 Rx Test) blood sugar diagnostic (Wholelife CompaniesTouch #150 ea 03/15/21 09/14/21 Rx Verio test strips) blood-glucose meter (OneTouch #1 ea 03/15/21 09/14/21 Rx Verio Flex meter) [id number] 1 cap PO Q6H PRN #20 cap 03/15/21 09/16/21 Rx 50 mg-300 mg-40 mg capsule (Fioricet) lancets 33 gauge (OneTouch Delica #150 ea 03/15/21 09/14/21 Rx Plus Lancet) coenzyme Q10 100 mg capsule 100 mg PO TID 04/01/21 09/16/21 History magnesium oxide 400 mg PO BID 04/01/21 09/16/21 History riboflavin (vitamin B2) 400 mg 400 mg PO DAILY 04/01/21 09/16/21 History tablet insulin NPH isoph U-100 human 100 10 unit SUBCUT QPM #15 ml 08/10/21 09/16/21 Rx unit/mL (3 mL) subcutaneous pen (Novolin N Flexpen) insulin aspart U-100 100 unit/mL 8 unit SUBCUT TID #15 ml 08/10/21 09/16/21 Rx (3 mL) subcutaneous pen (Novolog Flexpen U-100 Insulin aspart) pen needle, diabetic 32 gauge x #150 ea 08/10/21 09/14/21 Rx 5/32" (BD Ultra-Fine Corinne Pen Needle) Patient History Medical History 38 weeks gestation of Anxiety Bipolar 1 disorder Chronic back pain Depression Fibroadenoma of left breast Removed ~3 years ago Heart murmur does not follow with cardio; no previous echo History of chicken pox Hypertension Chronic Hypertension prior to ; was on Metoprolol in past but bipolar meds lowered her BP. Migraines Suicidal ideations several in past; last ideation was May 2018- pt was hospitalized. Pt says it is situational and this past incident was relationship related. Pt says this is better now. Surgical History H/O tooth extraction H/O wisdom tooth extraction History of breast surgery removal fibroadenoma left breast History of cholecystectomy History of colonoscopy History of tooth extraction Hx of lumbar discectomy December 2016 Family History Father Hypertension Stroke Mother Lung cancer Other Family history non-contributory Denies family history of Colon cancer Ovarian cancer Prostate cancer Breast cancer Social History Smoking Status: Former smoker Second Hand Exposure: Yes; Hx Alcohol Use: No Hx Substance Use: No Preferred Language: Vietnamese Communication Ability: Effective Visual Impairment: No Limitations Hearing Ability: Normal Sexual Assault Counsellor Required: No Beliefs That Will Affect Care: None marital status: marital status details: FOB: Sathya Meadows (29) [phone] Current Living Situation: Alone and Family Current Living Situation Comment: lives with FOB, son and daughter. 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 [employer] Other Information That Helps Us Care for You: No Feels Safe at Home: Yes Safety Concerns: Feels Safe At This Time Assistive Devices: None Physical Exam Genitourinary: OB Exam Abdomen: + vertex and + estimated weight (7-8) Manual OB Exam: + cervical dilation (3+), + cervical effacement 70% and + station -2 OB Exam Monitor Tracing: + external FHT monitor used, + external uterine monitor used (irreg) and + category I (140/mod/+accel/-decel) SVE was unchanged after 2hrs Results & Data ([facility]) Vital Signs (Past 12 Hours) Vital Signs Temp Pulse Resp BP 02/10/22 03:50 105 H 152/98 H 09/16/21 03:35 99 H 142/95 H 09/16/21 03:20 103 H 145/96 H 09/16/21 03:05 103 H 159/96 H 09/16/21 02:55 105 H 142/103 H 09/16/21 02:51 100 H 156/108 H 09/16/21 02:36 117 H 147/105 H 09/16/21 02:20 101 H 154/94 H 09/16/21 01:58 97 H 150/99 H 09/16/21 01:19 102 H 141/99 H 09/16/21 00:00 93 H 140/98 09/15/21 23:47 120 H 132/98 09/15/21 23:41 97.7 F 104 H 18 144/93 H 09/15/21 23:37 97.7 F 104 H 18 144/93 H Laboratory Results OB Labs: Blood Type A Positive 02/17/21 Antibody Screen NEGATIVE 02/17/21 Hemoglobin 10.6 g/dL (12.0-16.0) L 07/12/21 Hematocrit 31.7 % (37-47) L 07/12/21 Mean Corpuscular Volume 86.1 fL (80-100) 02/17/21 Platelet Count 283 K/uL (130-400) 02/17/21 Rubella IgG Antibody Immune (Immune) 02/17/21 Rapid Plasma Reagin Nonreactive (Nonreactive) 02/17/21 Hepatitis B Surface Antigen Neg (Neg) 02/17/21 HIV (1&2) Ab and P24 Ag, 4th Gener Neg (Neg) 02/17/21 Glucose 1 Hour 50 gm Load 146 mg/dl (70-130) H 06/04/18 OB Optional Labs: Chlamydia trachomatis RNA NOT DETECTED (NOT DETECTED) 02/17/21 Neisseria gonorrhoeae RNA NOT DETECTED (NOT DETECTED) 02/17/21 Thyroid Stimulating Hormone (TSH) 3.100 uIu/ml (0.300-4.500) 08/15/18 Alpha Fetoprotein Triple Screen SEE NOTE 03/12/18 Alpha Fetoprotein 46.8 NG/ML 03/12/18 Labs Reviewed: cfdna --> low risk declines msafp declines cf/sms Diagnostic Findings 08/30 EFW 3175g 87%, AC >98% Coding Level of Care Code None Diagnoses Insulin controlled gestational diabetes mellitus (GDM) during O24.414 Polyhydramnios affecting O40.9XX0 Gestational hypertension O13.9
[2021-09-16] MEDS: LACTATED RINGER'S 1,000 ML IV PRN ×2 (04:14→06:15)
[2021-09-16] MEDS ORDERED: BUTORPHANOL TARTRATE 1 MG/ML VIAL ONE (04:31)
[2021-09-16] MEDS ORDERED: BUTORPHANOL TARTRATE 1 MG/ML VIAL IV ONE (04:39)
[2021-09-16] MEDS ORDERED: fentaNYL citrate 100 MCG/2 ML VIAL ONE (05:26)
[2021-09-16] MEDS ORDERED: BUPIVACAINE 0.25% 30 ML VIAL ONE (05:26)
[2021-09-16] MEDS ORDERED: SODIUM CHLORIDE 0.9% INJ 10 ML VIAL ONE (05:26)
[2021-09-16] MEDS ORDERED: ePHEDrine sulfate 50 MG/ML AMP ONE (05:26)
[2021-09-16] MEDS ORDERED: fentaNYL 2MCG/ML ROPIVACAINE 1.25MG/ML 100 ML BAG EPI ONE (05:27)
[2021-09-16] MEDS ORDERED: NALOXONE HCL 1 MG in SODIUM CHLORIDE 0.9% 1000ML 1,000 ML IV PRN (05:59)
[2021-09-16] MEDS ORDERED: ePHEDrine sulfate 50 MG/ML AMP IV PRN (05:59)
[2021-09-16] MEDS ORDERED: fentaNYL 2MCG/ML ROPIVACAINE 1.25MG/ML 100 ML BAG EPI PRN (05:59)
[2021-09-16] MEDS ORDERED: diphenhydrAMINE 50 MG/ML VIAL IV PRN (05:59)
[2021-09-16] MEDS ORDERED: NALBUPHINE HCL INJ 10 MG/ML AMP IV PRN (05:59)
[2021-09-16] MEDS ORDERED: NALOXONE HCL 0.4 MG/1 ML VIAL/CARP IV PRN (05:59)
[2021-09-16] MEDS ORDERED: ONDANSETRON INJ 2 MG/ML 2 ML VIAL IV PRN (05:59)
--- NOTE | 2021-09-16 06:09 | Anesthesiology Consultation ---
Date of Service September 16, 2021 The patient states that she had some left facial drooping and left eye dilation from a previous labor epidural. Assessment & Plan (1) Encounter for pre-operative examination: Chart Review Chart Review: Patient NOT seen in Pre Admission Testing and Acceptable Risk for Labor Epidural Consults Requested none ASA ASA3 Proposed Anesthesia Anesthesia Type: Labor Epidural and CSE Risk / Benefits Reviewed With: PT / POA / Parent / Guardian, Accepts Plan and Informed Consent Obtained History Height/Weight Height: 5 ft 2 in Weight: 73.936 kg Allergies Allergy/AdvReac Type Severity Reaction Status Date / Time Sulfa (Sulfonamide Allergy Intermediate Hives Verified 09/14/21 14:14 Antibiotics) Medications Home Medications Medication Instructions Recorded Confirmed Last Taken escitalopram oxalate 10 mg tablet 15 mg PO HS 10/29/19 09/16/21 08/24/20 cyclobenzaprine 5 mg tablet 5 mg PO DAILY PRN 08/17/20 09/16/21 08/22/20 acetone (urine) test (Ketone Urine #50 ea 03/15/21 09/14/21 Unknown Test) blood sugar diagnostic (OneTouch #150 ea 03/15/21 09/14/21 Unknown Verio test strips) blood-glucose meter (OneTouch #1 ea 03/15/21 09/14/21 Unknown Verio Flex meter) lancets 33 gauge (OneTouch Delica #150 ea 03/15/21 09/14/21 Unknown Plus Lancet) magnesium oxide 400 mg PO BID 04/01/21 09/16/21 Unknown riboflavin (vitamin B2) 400 mg 400 mg PO DAILY 04/01/21 09/16/21 09/15/21 tablet pen needle, diabetic 32 gauge x #150 ea 08/10/21 09/14/21 Unknown 5/32" (BD Ultra-Fine Corinne Pen Needle) insulin NPH isoph U-100 human 100 12 unit SUBCUT QPM 09/16/21 09/16/21 09/15/21 unit/mL (3 mL) subcutaneous pen (Novolin N Flexpen) insulin aspart U-100 100 unit/mL 15 unit SUBCUT TID 09/16/21 09/16/21 09/15/21 (3 mL) subcutaneous pen (Novolog Flexpen U-100 Insulin aspart) Active Medications Generic Name Dose Route Start Last Admin Trade Name Freq PRN Reason Stop Dose Admin Lactated Ringer's 1,000 mls @ 125 mls/hr 09/16/21 03:58 09/16/21 05:45 Lr IV 09/18/21 03:57 125 mls/hr .Q8H PRN Infusion L&D Protocol Protocol NPO Date Last Intake of Fluids: 09/16/21 Time Last Intake of Fluids: 05:00 Date Last Intake of Solids: 09/15/21 Time Last Intake of Solids: 20:00 Past Medical History Medical History 38 weeks gestation of Anxiety Bipolar 1 disorder Chronic back pain Depression Fibroadenoma of left breast Removed ~3 years ago Heart murmur does not follow with cardio; no previous echo History of chicken pox Hypertension Chronic Hypertension prior to ; was on Metoprolol in past but bipolar meds lowered her BP. Insulin controlled gestational diabetes mellitus (GDM) during Migraines Suicidal ideations several in past; last ideation was May 2018- pt was hospitalized. Pt says it is situational and this past incident was relationship related. Pt says this is better now. Exercise / Class Metabolic Activity II 4-5 Yardwork/Stairs/Walk up hill Past Family History Family History Father Hypertension Stroke Mother Lung cancer Other Family history non-contributory Denies family history of Colon cancer Ovarian cancer Prostate cancer Breast cancer Past Surgical History Surgical History H/O tooth extraction H/O wisdom tooth extraction History of breast surgery removal fibroadenoma left breast History of cholecystectomy History of colonoscopy History of tooth extraction Hx of lumbar discectomy December 2016 Past Anesthesia History No Hx of Anesthesia Complications and No Family Hx of Anesthesia Complications History of PONV No Hx of PONV and No Hx of Motion Sickness Social History Smoking Status: Former smoker tobacco type: cigarettes Hx Alcohol Use: No Hx Substance Use: No substance use type: does not use Review of Systems no chest pain or sob Physical Exam Vital Signs Last Vital Signs Temp 36.5 C 09/16/21 05:38 Pulse 105 H 09/16/21 06:02 Resp 18 09/16/21 05:38 BP 158/94 H 09/16/21 05:38 Pulse Ox 94 09/16/21 06:02 ENMT Mouth: no TMJ abnormality Thyromental Distance: > or= 3.5 Finger Breadths Mallampati Class: II Neck normal visual inspection Respiratory normal respiratory effort Auscultation: lungs clear to auscultation bilaterally Cardiovascular Rate/Rhythm: regular rate and regular rhythm Musculoskeletal Spine: normal cervical ROM Neurologic moves all extremities Psychiatric Orientation: alert and oriented x 3 Testing Laboratory Results 09/16/21 02:22 09/16/21 02:22 09/16/21 04:41 POC Glucose 87
--- NOTE | 2021-09-16 08:09 | Labor Progress Brief Note ---
Date of Service September 16, 2021 Subjective Comfortable w/ epidural Assessment & Plan (1) Gestational hypertension: (2) Insulin controlled gestational diabetes mellitus (GDM) during : (3) Polyhydramnios affecting : Plan: 30 y/o at 38 2/7 wga now meeting criteria for ghtn Mild BPs, no severes currently Fetus cat 1 ghtn - pet labs wnl, UPC will be re-drawn as got completed as urine creatinine. A2GDM - q2h bg, q1h in labor labor - progressed unaugmented, continue to monitor. head to ballotable for arom currently GBS neg epidural in place Admission and Anticipated Discharge Date Admission Date: September 16, 2021 Physical Exam Genitourinary: Manual OB Exam: + cervical dilation (5-6), + cervical effacement 70% and + station -2 OB Exam Monitor Tracing: + external FHT mon itor used, + external uterine monitor used (q4-6) and + category I (125/mod/+accel/-decel) Results & Data ([facility]) Vital Signs (Past 12 Hours) Vital Signs Temp Pulse Resp BP Pulse Ox 09/16/21 08:03 87 137/85 09/16/21 08:01 101 H 97 09/16/21 07:56 100 H 96 09/16/21 07:51 116 H 97 09/16/21 07:48 85 133/83 09/16/21 07:46 122 H 97 09/16/21 07:41 113 H 96 09/16/21 07:36 122 H 96 09/16/21 07:32 127 H 117/65 09/16/21 07:31 123 H 95 09/16/21 07:26 124 H 95 09/16/21 07:21 138 H 95 09/16/21 07:17 142 H 114/56 L 09/16/21 07:16 144 H 96 09/16/21 07:15 98.4 F 18 09/16/21 07:11 128 H 95 09/16/21 07:06 138 H 95 09/16/21 07:03 113 H 132/83 09/16/21 07:01 135 H 96 09/16/21 06:59 115 H 117/63 09/16/21 06:56 134 H 94 09/16/21 06:55 133 H 112/58 L 09/16/21 06:51 134 H 95 09/16/21 06:49 106 H 128/62 09/16/21 06:46 96 H 94 09/16/21 06:45 122 H 124/86 09/16/21 06:41 104 H 95 09/16/21 06:39 131 H 127/70 09/16/21 06:36 122 H 94 09/16/21 06:34 150 H 120/79 09/16/21 06:32 118 H 141/84 H 09/16/21 06:31 108 H 94 09/16/21 06:30 115 H 142/88 H 09/16/21 06:28 116 H 140/82 09/16/21 06:27 143 H 94 09/16/21 06:26 141 H 134/83 94 09/16/21 06:24 100 H 138/88 09/16/21 06:22 116 H 134/85 09/16/21 06:21 113 H 95 09/16/21 06:20 107 H 137/90 09/16/21 06:18 105 H 137/89 09/16/21 06:16 104 H 94 09/16/21 06:11 103 H 95 09/16/21 06:08 98 H 94 09/16/21 06:07 95 H 139/88 09/16/21 06:06 102 H 95 09/16/21 06:02 105 H 94 09/16/21 06:01 100 H 94 09/16/21 05:57 100 H 94 09/16/21 05:56 100 H 95 09/16/21 05:51 103 H 94 09/16/21 05:50 93 H 94 09/16/21 05:46 98 H 94 09/16/21 05:43 91 H 94 09/16/21 05:41 97 H 94 09/16/21 05:38 97.7 F 100 H 18 158/94 H 94 09/16/21 05:36 95 H 96 09/16/21 05:09 102 H 146/92 H 09/16/21 04:36 108 H 167/103 H 09/16/21 04:21 102 H 139/95 09/16/21 04:07 99 H 147/100 H 09/16/21 03:50 105 H 152/98 H 09/16/21 03:35 99 H 142/95 H 09/16/21 03:20 103 H 145/96 H 09/16/21 03:05 103 H 159/96 H 09/16/21 02:55 105 H 142/103 H 09/16/21 02:51 100 H 156/108 H 09/16/21 02:36 117 H 147/105 H 09/16/21 02:20 101 H 154/94 H 09/16/21 01:58 97 H 150/99 H 09/16/21 01:19 102 H 141/99 H 09/16/21 00:00 93 H 140/98 09/15/21 23:47 120 H 132/98 09/15/21 23:41 97.7 F 104 H 18 144/93 H 09/15/21 23:37 97.7 F 104 H 18 144/93 H Coding Level of Care Code None Diagnoses Gestational hypertension O13.9 Insulin controlled gestational diabetes mellitus (GDM) during O24.414 Polyhydramnios affecting O40.9XX0
[2021-09-16 09:47] LABS: Creatinine Urine Random 38.9 mg/dl; Protein Creatinine Ratio Urine 0.4 (0-0.2); Total Protein Urine Random 17.2 mg/dl (0-11.9)
[2021-09-16] MEDS ORDERED: ACETAMINOPHEN 500 MG TAB PO PRN (09:54)
--- NOTE | 2021-09-16 11:37 | Delivery Summary ---
Vaginal Delivery Summary Date of Service September 16, 2021 Vaginal Delivery Summary and 1st Degree LAC Vaginal Delivery Summary: Pre-delivery diagnoses: 30yo @ 38 2/, spontaneous labor, preeclampsia without severe features, GDMA2, polyhydramnios Post-delivery diagnoses: same Procedure: spontaneous vaginal delivery, repair of 1st degree perineal laceration Surgeon: Izzy Levine DO Complications: none Findings: Viable male . Apgars: 8/9. Weight pending, please see nursery records. Estimated blood loss: 300ml Description of delivery: The patient progressed to complete with epidural anesthesia. She notified RN that a bulge was coming out of vagina, and upon exam this was a large pocket of amniotic fluid inside membranes. Cervical exam revealed anterior lip of placenta with head at 1+ station. She then began to push. She spontaneously vaginally delivered a viable from the cephalic presentation. The head delivered in JINA position. The anterior shoulder delivered, followed by the posterior shoulder, followed by the body. The baby was placed on mother's abdomen and a spontaneous cry was heard. Delayed cord clamping was employed, and the cord was doubly clamped and cut. Cord blood was obtained. The placenta was delivered spontaneously intact with a 3-vessel cord. The uterus and vagina were swept of clots and debris. IV pitocin was given. The uterus became firm. The cervix, vagina, and perineum were inspected and a 1st degree perineal laceration was noted - since this had small amount of bleeding, it was repaired in standard fashion with 3-0 vicryl. Excellent hemostasis was observed. The mother and baby are recovering in stable and good condition in the room. Sponge, needle and instrument counts were correct x 2. Izzy Levine DO [facility] Vaginal Delivery Charge Vaginal Delivery Codes: 78603 global code for the antepartum, delivery, and post- Delivery Type Details: and 1st Degree LAC
[2021-09-16] MEDS ORDERED: bisacodyL 10 MG SUPP PR PRN (11:39)
[2021-09-16] MEDS ORDERED: HYDROCORTISONE ACETATE 25 MG SUPP PR PRN (11:39)
[2021-09-16] MEDS ORDERED: BENZOCAINE 20% AER SPR 82.5 GM CAN EXT PRN (11:39)
[2021-09-16] MEDS ORDERED: oxyCODONE/ACETAMINOPHEN 5mg/325mg TAB PO PRN (11:39)
[2021-09-16] MEDS ORDERED: DIPHTHERIA/TETANUS/PERTUSSIS 0.5 ML SYR/VIAL IM ONE (11:39)
[2021-09-16] MEDS: IBUPROFEN 600 MG TAB PO PRN ×3 (13:21→21:33)
--- NOTE | 2021-09-16 14:06 | Anesthesia Procedure Note ---
Date of Service September 16, 2021 Anesthesia Post Epidural Note Vital Signs Vital Signs: Temp Pulse Resp BP Pulse Ox 37.0 C 106 H 20 135/82 94 09/16/21 11:30 09/16/21 14:00 09/16/21 13:15 09/16/21 14:00 09/16/21 11:31 Pain Intensity Episiotomy/Laceration: Pain Intensity: 3 Notes Mental Status: alert / awake / arousable and participated in evaluation Nausea / Vomiting: adequately controlled Pain: adequately controlled Airway Patency, RR, SpO2: stable & adequate BP & HR: stable & adequate Hydration State: stable & adequate Neuraxial Anesthesia: was administered and sensory block is resolving Anesthetic Complications: no major complications apparent and Pt Satisfied with anesthetic care Epidural: Removed without complications and With tip intact Notes: Epidural site clean, dry and intact. No signs of edema, erythema or bruising at insertion site. Pt instructed to request anesthesia if she has residual lower extremity numbness or if she develops lower extremity pain or weakness, back pain or headache.
[2021-09-16] MEDS: ACETAMINOPHEN 325 MG TAB PO PRN (19:46)
[2021-09-16] MEDS ORDERED: ESCITALOPRAM OXALATE 10 MG TAB PO SCH (21:00)
[2021-09-16] MEDS: DOCUSATE SODIUM 100 MG CAP PO SCH (21:33)
[2021-09-16] MEDS: MAGNESIUM OXIDE 400 MG TAB PO SCH (21:34)
[2021-09-16] MEDS ORDERED: diphenhydrAMINE Capsule 25 MG CAP PO ONE (22:17)
[2021-09-17] MEDS: IBUPROFEN 600 MG TAB PO PRN ×3 (02:09→10:39)
--- NOTE | 2021-09-17 06:02 | Obstetrical Progress Note ---
Date of Service <Shahnaz Young DO - Last Filed: 09/17/21 07:44> September 17, 2021 Assessment & Plan <Shahnaz Young DO - Last Filed: 09/17/21 07:44> (1) Encounter for care and examination after delivery: (2) Polyhydramnios affecting : (3) Insulin controlled gestational diabetes mellitus (GDM) during : (4) Preeclampsia: 30 yo post op day1 from with GDM, pre-eclampsia, doing well. -Continue routine post care. -vital signs reviewed and WNL (Tmax 36.8) -Blood Type A+, GBS-, Rubella immune -Encourage ambulation, monitor and control pain with Motrin, tylenol PRN, resume regular diet, monitor lochia -encourage bottle feeding -hemoglobin 11.3 -patient comfortable going home today if blood pressure stable Day #:: 1 <Izzy Levine, - Last Filed: 09/17/21 07:51> (1) Encounter for care and examination after delivery: (2) Polyhydramnios affecting : (3) Insulin controlled gestational diabetes mellitus (GDM) during : (4) Preeclampsia: Subjective <Shahnaz Young DO - Last Filed: 09/17/21 07:44> Ambulation: ambulating normally Voiding: no voiding problems Passing Gas:: Yes Diet Tolerance:: regular diet Lochia:: Small Feeding Type:: bottle feeding Current Pain Level(1-10): 1 Review of Systems Denies fever, chills, sweats Denies shortness of breath, difficulty breathing, chest pain, palpitations, chest pressure. Denies breast pain. Denies dysuria. Denies headache or changes in vision. Physical Exam <Shahnaz Young DO - Last Filed: 09/17/21 07:44> General: Alert, oriented. No acute distress. Cardiac: Regular rate and rhythm, no murmurs/rubs/gallops. Respiratory: Clear to auscultation bilaterally a/p, no wheezes/rales/rhonchi. No increased work of breathing. Symmetrical chest rise. No respiratory distress. Abdomen: Soft, nontender, nondistended. Bowel sounds present. Uterus: Uterine fundus firm, palpable 1 cm below umbilicus. Lower Extremities: No lower extremity edema or swelling. No deep calf pain. Davey's negative bilaterally.. Results & Data ([facility]) <Shahnaz Young DO - Last Filed: 09/17/21 07:44> Vital Signs (Past 12 Hours) Vital Signs Temp Pulse Resp BP Pulse Ox 09/17/21 03:44 36.8 C 88 16 151/98 H 09/16/21 23:05 36.9 C 16 130/80 09/16/21 19:55 36.5 C 88 18 142/93 H 97 <Izzy Levine, - Last Filed: 09/17/21 07:51> Co-Signing Physician Notes Resident Physician Supervision Note: I was present with Dr. Young during the history and exam. I discussed the case with the resident and agree with the findings and plan as documented in the note. Any exceptions or clarifications are listed here: PPD1 doing well. BPs have been 130-150s/80-90s. Asymptomatic. Hoping to go home today. Reviewed DC instructions. Documented By: Izzy Levine DO Resident Activity Tracking <Shahnaz Young DO - Last Filed: 09/17/21 07:44> Resident Involvement: Resident Care Provided Care Provided: Adult Hospital Medicine
[2021-09-17 06:52] LABS: Hematocrit (blood only) 29.2 % (37-47); Hemoglobin 9.7 g/dL (12.0-16.0)
[2021-09-17] MEDS ORDERED: PRENATAL VITAMIN 1 TAB PO SCH (08:00)
[2021-09-17] MEDS: ACETAMINOPHEN 325 MG TAB PO PRN (08:01)
[2021-09-17] MEDS: MAGNESIUM OXIDE 400 MG TAB PO SCH (08:01)
[2021-09-17] MEDS: DOCUSATE SODIUM 100 MG CAP PO SCH (08:01)
[2021-09-17] MEDS ORDERED: NON-FORMULARY MEDICATION (Riboflavin (Vitamin B2) 400 mg tablet) PO SCH (09:00)
[2021-09-17] MEDS ORDERED: bisacodyL 5 MG TABEC PO SCH (20:00)
== END 2021-09-17 13:40 | disposition home or self-care (01) | DRG 807 ==
LOC: OPB 23:23 → 4S1 23:26 → 4S2 09-16 15:58

== ENCOUNTER 2021-09-22 19:59 | Observation (INO) ==
[2021-09-22] MEDS ORDERED: LABETALOL HCL IV 5 MG/ML 20ML IV STA ×2 (20:44→21:27)
[2021-09-22] MEDS ORDERED: LABETALOL HCL IV 5 MG/ML 20ML IV ONE (20:45)
[2021-09-22] MEDS ORDERED: MAGNESIUM SULFATE 40GM / WTR 1,000 ML BAG IV ONE (20:46)
[2021-09-22] MEDS ORDERED: PATIENT'S HEIGHT AND/OR WEIGHT NEEDED SCH (21:00)
[2021-09-22] MEDS: LACTATED RINGER'S 1,000 ML IV SCH (21:00)
[2021-09-22] MEDS ORDERED: MAG SULFATE 4GM BOLUS FROM BAG IV ONE (21:00)
[2021-09-22] MEDS: MAGNESIUM SULFATE / WTR 40 GM/1,000 ML BAG IV SCH (21:01)
[2021-09-22 21:12] LABS: Basophils # (auto) 0.04 K/uL (0-0.2); Basophils % (auto) 0.4 %; Eosinophils # (auto) 0.12 K/uL (0-0.5); Eosinophils % (auto) 1.1 %; Hematocrit (blood only) 33.2 % (37-47); Hemoglobin 10.7 g/dL (12.0-16.0); Immature Granulocytes # (auto) 0.05 K/uL (0.00-0.02); Immature Granulocytes % (auto) 0.5 %; Lymphocytes # (auto) 2.79 K/uL (1.2-3.4); Mean Corpuscular Hemoglobin 26.5 pg (25-34); Mean Corpuscular Volume 82.2 fL (80-100); Monocytes # (auto) 0.74 K/uL (0.11-0.59); Monocytes % (auto) 6.9 %; Neutrophils # (auto) 6.98 K/uL (1.4-6.5); Neutrophils % (auto) 65.1 %; Platelet Count 336 K/uL (130-400); RDW Coefficient of Variation 15.3 % (11.5-14.5); RDW Standard Deviation 43.9 fL (36.4-46.3); Red Blood Count 4.04 M/uL (4.2-5.4); White Blood Count 10.72 K/uL (4.8-10.8)
[2021-09-22] MEDS ORDERED: IBUPROFEN 600 MG TAB PO ONE (21:18)
[2021-09-22 21:19] LABS: Creatinine Urine Random 45.5 mg/dl; Protein Creatinine Ratio Urine 0.3 (0-0.2); Total Protein Urine Random 13.9 mg/dl (0-11.9)
--- NOTE | 2021-09-22 21:28 | History & Physical Report ---
Date of Service September 22, 2021 Assessment & Plan (1) Preeclampsia: Plan: 30 y/o presents w/ pre-eclampsia w/ SF -BP was severe range in 180s on arrival, BLEVINS was persistent despite use of tyl/ibu and actually worsened. Labs were obtained and stable. However given severe range BPs and BLEVINS that is now unrelieved by any medications, would meet criteria for pre-eclampsia w/ SF. She did require IV labetalol 20 x 2 to reach non-severe ranges, 4g mag bolus started and then 2g/hr after. Labetalol 200mg q8h continued from the office. History of Present Illness Chief Complaint: persistent BLEVINS, elev BPs Primary Care Provider: Aydee Plummer, DO 30 y/o s/p on 09/16 presented to L&D w/ complaints of elevated BPs at home despite labetalol and persistent BLEVINS. Was seen in clinic today for 1 wk BP check due to dx pet w/o SF. BP was elevated at that time but started on labetalol 200mg BID. Had been getting BLEVINS on and off throughout the week that would resolve w/ tyl/ibuprofen. After appointment today, took labetalol 200mg but then started getting a BLEVINS again. She took tylenol and ibuprofen however had no relief and called in. She did take magnesium oxide which she was given by neurology previously for her BLEVINS but it continued to worsen. Has not had a migraine for a while but doesn't think this is exactly the same as those. She reports that her BP at home prior to coming in was again elevated. Denies spots in her vision, chest pain, SOB, RUQ/epigastric pain Allergies Allergy/AdvReac Type Severity Reaction Status Date / Time Sulfa (Sulfonamide Allergy Intermediate Hives Verified 09/22/21 10:46 Antibiotics) Home Medications Medication Instructions Recorded Confirmed Type escitalopram oxalate 10 mg tablet 15 mg PO HS 10/29/19 09/22/21 History cyclobenzaprine 5 mg tablet 5 mg PO DAILY PRN 08/17/20 09/22/21 History magnesium oxide 400 mg PO BID 04/01/21 09/22/21 History riboflavin (vitamin B2) 400 mg 400 mg PO DAILY 04/01/21 09/22/21 History tablet hydrocortisone-pramoxine 2.5 %-1 % 1 applic DC QID PRN #30 g 09/20/21 09/22/21 Rx rectal cream (Analpram-HC) labetalol 200 mg tablet 200 mg PO BID #60 tab 09/22/21 09/22/21 Rx Patient History Medical History 38 weeks gestation of Anxiety Bipolar 1 disorder Chronic back pain Depression Fibroadenoma of left breast Removed ~3 years ago Heart murmur does not follow with cardio; no previous echo History of chicken pox Hypertension Chronic Hypertension prior to ; was on Metoprolol in past but bipolar meds lowered her BP. Insulin controlled gestational diabetes mellitus (GDM) during Migraines Suicidal ideations several in past; last ideation was May 2018- pt was hospitalized. Pt says it is situational and this past incident was relationship related. Pt says this is better now. Surgical History H/O tooth extraction H/O wisdom tooth extraction History of breast surgery removal fibroadenoma left breast History of cholecystectomy History of colonoscopy History of tooth extraction Hx of lumbar discectomy December 2016 Family History Father Hypertension Stroke Mother Lung cancer Other Family history non-contributory Denies family history of Colon cancer Ovarian cancer Prostate cancer Breast cancer Social History Smoking Status: Never smoker Second Hand Exposure: Yes; Hx Alcohol Use: No Hx Substance Use: No Preferred Language: Macedonian Communication Ability: Effective Visual Impairment: No Limitations Hearing Ability: Normal Drycleaner Required: No Beliefs That Will Affect Care: None marital status: marital status details: FOB: Sathya Meadows (29) [phone] Current Living Situation: Alone and Family Current Living Situation Comment: lives with FOB, son and daughter. 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 [employer] Feels Safe at Home: Yes Safety Concerns: Feels Safe At This Time Assistive Devices: None Physical Exam Constitutional: WD/WN, vitals as above Respiratory: normal respiratory effort; no respiratory distress and no labored breathing Results & Data ([facility]) Vital Signs (Past 12 Hours) Vital Signs Resp 09/22/21 20:37 18 Laboratory Results 09/22/21 09/22/21 09/22/21 Range/Units 20:51 20:51 20:30 WBC 10.72 (4.8-10.8) K/uL RBC 4.04 L (4.2-5.4) M/uL Hgb 10.7 L (12.0-16.0) g/dL Hct 33.2 L (37-47) % MCV 82.2 (80-100) fL MCH 26.5 (25-34) pg MCHC 32.2 (32-36) g/dL RDW Std Deviation 43.9 (36.4-46.3) fL RDW Coeff of Renee 15.3 H (11.5-14.5) % Plt Count 336 (130-400) K/uL MPV 9.0 (7.4-10.4) fL Immature Gran % (Auto) 0.5 % Neut % (Auto) 65.1 % Lymph % (Auto) 26.0 % Amador % (Auto) 6.9 % Eos % (Auto) 1.1 % Baso % (Auto) 0.4 % Neut # (Auto) 6.98 H (1.4-6.5) K/uL Lymph # (Auto) 2.79 (1.2-3.4) K/uL Amador # (Auto) 0.74 H (0.11-0.59) K/uL Eos # (Auto) 0.12 (0-0.5) K/uL Baso # (Auto) 0.04 (0-0.2) K/uL Immature Gran # (Auto) 0.05 H (0.00-0.02) K/uL Sodium 137 (136-145) mmol/L Potassium 3.5 (3.5-5.1) mmol/L Chloride 107 (98-107) mmol/L Carbon Dioxide 23 (21-32) mmol/L Anion Gap 7 (3-11) BUN 13 (6-23) mg/dl Creatinine 0.57 L (0.6-1.2) mg/dl Est Cr Clr Drug Dosing 128.1 ml/min Est GFR ( Amer) 142.2 ml/min Est GFR (Non-Af Amer) 122.7 ml/min BUN/Creatinine Ratio 22.8 H (10-20) Glucose 94 (70-99(Fasting)) mg/dl Calcium 8.6 (8.5-10.1) mg/dl Total Bilirubin 0.2 (0.2-1.0) mg/dl AST 21 (13-39) U/L ALT 29 (7-52) U/L Alkaline Phosphatase 126 H (34-104) U/L Total Protein 6.3 (6.0-8.3) gm/dl Albumin 3.3 L (3.4-5.0) gm/dl Globulin 3.0 (2.5-4.0) gm/dl Albumin/Globulin Ratio 1.1 (0.9-2) Ur Random Creatinine 45.5 mg/dl U Random Total Protein 13.9 H (0-11.9) mg/dl Protein/Creatinin Ratio 0.3 H (0-0.2) Coding Level of Care Code None Diagnoses Preeclampsia O14.90
[2021-09-22 21:30] LABS: Albumin Globulin Ratio 1.1 (0.9-2); Albumin Level 3.3 gm/dl (3.4-5.0); BUN Creatinine Ratio 22.8 (10-20); Bilirubin,Total 0.2 mg/dl (0.2-1.0); Calcium 8.6 mg/dl (8.5-10.1); Creatinine Clr Calc Pharmacy 128.1 ml/min; Est GFR (African American) 142.2 ml/min; Est GFR (Non-African American) 122.7 ml/min; Potassium 3.5 mmol/L (3.5-5.1); Total Protein 6.3 gm/dl (6.0-8.3)
[2021-09-22 21:53] LABS: Mean Corpuscular Hgb Conc 32.2 g/dL (32-36)
[2021-09-22] MEDS: LABETALOL HCL 100 MG TAB PO SCH (22:11)
[2021-09-22] MEDS: ACETAMINOPHEN 500 MG TAB PO PRN (23:42)
[2021-09-23] MEDS: IBUPROFEN 600 MG TAB PO PRN ×4 (01:38→20:41)
[2021-09-23] MEDS ORDERED: diphenhydrAMINE Capsule 25 MG CAP PO ONE (02:42)
[2021-09-23] MEDS ORDERED: BUTALBITAL/ACETAMIN/CAFFEINE TAB PO PRN (04:00)
[2021-09-23] MEDS: LABETALOL HCL 100 MG TAB PO SCH ×2 (05:55→13:59)
--- NOTE | 2021-09-23 06:31 | Obstetrical Progress Note ---
Date of Service September 23, 2021 Assessment & Plan (1) Preeclampsia: Plan: 31 y/o 1 wk s/p admitted for pre-eclampsia w/ SF VSS improved on oral labetalol 200mg q8h PET w/ SF - labs normal on admission, BLEVINS improved but still present. UOP adeq, no s/s mag tox. Continue mag and labetalol Subjective Resting, BLEVINS is improved enough to sleep a bit but still present. Denies vision change, CPS, SOB, RUQ/epigastric pain. Physical Exam Constitutional: WD/WN, vitals as above Respiratory: normal respiratory effort, lungs clear to auscultation Results & Data ([facility]) Vital Signs (Past 12 Hours) Vital Signs Temp Pulse Pulse Resp BP BP BP 09/23/21 06:21 95 H 09/23/21 06:16 97 H 09/23/21 06:11 90 09/23/21 06:06 90 09/23/21 06:01 90 09/23/21 06:00 94 H 18 120/72 09/23/21 05:56 89 09/23/21 05:51 88 09/23/21 05:46 87 09/23/21 05:41 88 09/23/21 05:36 87 09/23/21 05:34 92 H 120/72 09/23/21 05:31 87 09/23/21 05:26 83 09/23/21 05:21 86 09/23/21 05:16 81 09/23/21 05:11 84 09/23/21 05:06 83 09/23/21 05:01 93 H 09/23/21 04:56 89 09/23/21 04:51 85 09/23/21 04:46 85 09/23/21 04:41 84 09/23/21 04:36 82 09/23/21 04:34 83 146/82 H 09/23/21 04:31 81 09/23/21 04:30 97.5 F L 85 18 146/82 H 09/23/21 04:26 85 09/23/21 04:21 84 09/23/21 04:16 84 09/23/21 04:11 81 09/23/21 04:06 83 09/23/21 04:02 84 09/23/21 04:01 89 09/23/21 03:56 84 09/23/21 03:51 92 H 09/23/21 03:46 84 09/23/21 03:41 88 09/23/21 03:36 88 09/23/21 03:34 82 132/76 09/23/21 03:31 95 H 09/23/21 03:30 88 18 132/76 09/23/21 03:26 87 09/23/21 03:21 83 09/23/21 03:16 86 09/23/21 03:15 86 09/23/21 03:11 87 09/23/21 03:08 86 09/23/21 03:06 84 09/23/21 03:01 90 09/23/21 02:56 87 09/23/21 02:51 90 09/23/21 02:46 89 09/23/21 02:41 85 09/23/21 02:40 101 H 20 135/76 09/23/21 02:36 86 09/23/21 02:34 83 134/77 09/23/21 02:31 94 H 09/23/21 02:30 88 20 134/77 09/23/21 02:26 94 H 09/23/21 02:21 98 H 09/23/21 02:14 99 H 09/23/21 02:09 88 09/23/21 02:04 90 09/23/21 01:59 93 H 09/23/21 01:54 95 H 09/23/21 01:49 97 H 09/23/21 01:44 92 H 09/23/21 01:39 93 H 09/23/21 01:34 102 H 135/76 09/23/21 01:30 20 09/23/21 01:29 87 09/23/21 01:24 87 09/23/21 01:19 86 09/23/21 01:14 86 09/23/21 01:09 82 09/23/21 01:04 86 09/23/21 00:59 84 09/23/21 00:54 85 09/23/21 00:53 88 18 144/80 H 09/23/21 00:49 85 09/23/21 00:44 83 09/23/21 00:39 86 09/23/21 00:34 97 H 144/80 H 09/23/21 00:30 18 09/23/21 00:29 82 02/17/22 00:24 84 09/23/21 00:19 81 09/23/21 00:14 84 09/23/21 00:09 86 09/23/21 00:04 85 09/22/21 23:59 88 09/22/21 23:54 85 09/22/21 23:49 89 09/22/21 23:44 98 H 09/22/21 23:39 85 09/22/21 23:34 91 H 124/70 09/22/21 23:30 97.7 F 88 18 124/70 09/22/21 23:29 87 09/22/21 23:24 88 09/22/21 23:19 90 09/22/21 23:14 86 09/22/21 23:09 85 09/22/21 23:04 85 09/22/21 22:59 82 09/22/21 22:54 80 09/22/21 22:49 81 09/22/21 22:44 81 09/22/21 22:39 83 09/22/21 22:34 82 09/22/21 22:30 20 149/78 H 09/22/21 22:29 92 H 09/22/21 22:27 75 149/78 H 09/22/21 22:24 82 09/22/21 22:19 85 09/22/21 22:14 84 09/22/21 22:12 81 151/82 H 09/22/21 22:09 85 09/22/21 22:04 85 09/22/21 21:48 84 147/87 H 09/22/21 21:38 89 141/96 H 09/22/21 21:30 18 09/22/21 20:37 18 Pulse Ox 09/23/21 06:21 93 09/23/21 06:16 93 09/23/21 06:11 93 09/23/21 06:06 93 09/23/21 06:01 94 09/23/21 06:00 96 09/23/21 05:56 94 09/23/21 05:51 94 09/23/21 05:46 94 09/23/21 05:41 94 09/23/21 05:36 94 09/23/21 05:34 09/23/21 05:31 93 09/23/21 05:26 94 09/23/21 05:21 94 09/23/21 05:16 94 09/23/21 05:11 94 09/23/21 05:06 94 09/23/21 05:01 96 09/23/21 04:56 95 09/23/21 04:51 93 09/23/21 04:46 93 09/23/21 04:41 93 09/23/21 04:36 93 09/23/21 04:34 09/23/21 04:31 93 09/23/21 04:30 94 09/23/21 04:26 94 09/23/21 04:21 94 09/23/21 04:16 94 09/23/21 04:11 95 09/23/21 04:06 94 09/23/21 04:02 94 09/23/21 04:01 96 09/23/21 03:56 94 09/23/21 03:51 95 09/23/21 03:46 96 09/23/21 03:41 95 09/23/21 03:36 95 09/23/21 03:34 09/23/21 03:31 96 09/23/21 03:30 95 09/23/21 03:26 95 09/23/21 03:21 94 09/23/21 03:16 94 09/23/21 03:15 94 09/23/21 03:11 95 09/23/21 03:08 94 09/23/21 03:06 95 09/23/21 03:01 96 09/23/21 02:56 96 09/23/21 02:51 96 09/23/21 02:46 95 09/23/21 02:41 95 09/23/21 02:40 98 09/23/21 02:36 96 09/23/21 02:34 09/23/21 02:31 96 09/23/21 02:30 98 09/23/21 02:26 95 09/23/21 02:21 97 09/23/21 02:14 96 09/23/21 02:09 96 09/23/21 02:04 96 09/23/21 01:59 97 09/23/21 01:54 97 09/23/21 01:49 98 09/23/21 01:44 95 09/23/21 01:39 96 09/23/21 01:34 97 09/23/21 01:30 09/23/21 01:29 95 09/23/21 01:24 95 09/23/21 01:19 95 09/23/21 01:14 95 09/23/21 01:09 95 09/23/21 01:04 95 09/23/21 00:59 95 09/23/21 00:54 95 09/23/21 00:53 97 09/23/21 00:49 95 09/23/21 00:44 95 09/23/21 00:39 95 09/23/21 00:34 96 09/23/21 00:30 09/23/21 00:29 96 09/23/21 00:24 97 09/23/21 00:19 97 09/23/21 00:14 97 09/23/21 00:09 96 09/23/21 00:04 96 09/22/21 23:59 97 09/22/21 23:54 97 09/22/21 23:49 97 09/22/21 23:44 98 09/22/21 23:39 97 09/22/21 23:34 98 09/22/21 23:30 97 09/22/21 23:29 97 09/22/21 23:24 97 09/22/21 23:19 97 09/22/21 23:14 97 09/22/21 23:09 97 09/22/21 23:04 97 09/22/21 22:59 97 09/22/21 22:54 97 09/22/21 22:49 97 09/22/21 22:44 97 09/22/21 22:39 96 09/22/21 22:34 97 09/22/21 22:30 98 09/22/21 22:29 97 09/22/21 22:27 09/22/21 22:24 97 09/22/21 22:19 98 09/22/21 22:14 97 09/22/21 22:12 09/22/21 22:09 98 09/22/21 22:04 98 09/22/21 21:48 09/22/21 21:38 09/22/21 21:30 09/22/21 20:37 PG Care Time/CCT Total # of Minutes Spent Total Time Spent with Patient: Total time spent is greater than 50% in coordination of care (as documented) at patient's floor/unit and/or counseling patient: Coding Level of Care Code None Diagnoses Preeclampsia O14.90
[2021-09-23] MEDS: ACETAMINOPHEN 500 MG TAB PO PRN ×2 (07:30→14:30)
[2021-09-23] MEDS: LACTATED RINGER'S 1,000 ML IV SCH (09:29)
[2021-09-23] MEDS: DOCUSATE SODIUM 100 MG CAP PO SCH ×2 (11:25→20:42)
[2021-09-23] MEDS: RIZATRIPTAN BENZOATE 10 MG TAB PO PRN ×2 (11:26→20:42)
[2021-09-23] MEDS: MAGNESIUM SULFATE / WTR 40 GM/1,000 ML BAG IV SCH (12:58)
[2021-09-23] MEDS ORDERED: CYCLOBENZAPRINE HCL 10 MG TAB PO PRN ×2 (14:45→20:17)
--- NOTE | 2021-09-23 14:52 | Communication Note ---
Date of Service: September 23, 2021 continues to complain of headache which starts over left eye and radiates to left side of the neck Juarezalt helped for about 2 hours but the headache has returned sounds more like a tension headache at this time she has maxed out on tylenol dose for this 24 hour period will try flexeril now instead as micheline has tylenol in it as well.
[2021-09-23] MEDS: GLYCERIN ADULT 12 SUPP/BOX SUPP PR PRN (20:43)
[2021-09-23] MEDS ORDERED: ESCITALOPRAM OXALATE 10 MG TAB PO SCH (21:00)
[2021-09-23] MEDS: LABETALOL HCL 200 MG TAB PO SCH (23:12)
[2021-09-24] MEDS ORDERED: Nursing to Pharmacy Communication SCH (01:45)
[2021-09-24] MEDS ORDERED: SOD PHOSPHATE/SOD BIPHOSPHATE ENEMA 132 ML BTL PR ONE ×2 (01:51→01:53)
[2021-09-24] MEDS ORDERED: SOD PHOSPHATE/SOD BIPHOSPHATE ENEMA 132 ML BTL PR PRN (01:51)
[2021-09-24] MEDS: ACETAMINOPHEN 500 MG TAB PO PRN ×3 (01:54→15:37)
[2021-09-24] MEDS: LABETALOL HCL 200 MG TAB PO SCH (06:01)
[2021-09-24] MEDS: IBUPROFEN 600 MG TAB PO PRN ×3 (07:10→19:37)
[2021-09-24] MEDS ORDERED: LABETALOL HCL 100 MG TAB PO ONE (07:45)
--- NOTE | 2021-09-24 07:46 | Obstetrical Progress Note ---
Date of Service September 24, 2021 Assessment & Plan (1) Preeclampsia: Mg SO4 stopped last night at 2100 BP still elevated this morning- 170/109 will increase labetalol 300mg Q8H now with AM dose and continue to monitor the BP. Subjective Ambulation: ambulating normally Voiding: no voiding problems Passing Gas:: Yes Diet Tolerance:: clear liquids Lochia:: Small Feeding Type:: breast feeding (pumping) headache is now 1 out of 10- no other PIH symptoms BP elevated again after labetalol dose was given 1 hour later then scheduled. Review of Systems All systems reviewed & are unremarkable except as noted in HPI & below Physical Exam Constitutional WD/WN, vitals as above Psychiatric A+Ox3, euthymic affect Results & Data ([facility]) Vital Signs (Past 12 Hours) Vital Signs Temp Pulse Pulse Resp BP BP BP 09/24/21 04:00 98.4 F 79 16 150/99 H 09/24/21 01:30 158/99 H 09/24/21 01:00 162/100 H 09/24/21 00:22 98.2 F 82 16 160/98 H 09/23/21 22:45 83 171/110 H 09/23/21 21:03 82 09/23/21 21:00 16 09/23/21 20:58 80 09/23/21 20:53 87 09/23/21 20:48 80 09/23/21 20:43 87 09/23/21 20:38 82 09/23/21 20:36 97.5 F L 79 20 144/80 H 09/23/21 20:33 84 09/23/21 20:28 87 09/23/21 20:23 89 09/23/21 20:18 101 H 09/23/21 20:13 85 09/23/21 20:08 87 09/23/21 20:03 83 09/23/21 20:00 83 18 127/74 09/23/21 19:58 89 09/23/21 19:53 85 09/23/21 19:48 86 09/23/21 19:43 81 Pulse Ox 09/24/21 04:00 97 09/24/21 01:30 09/24/21 01:00 09/24/21 00:22 97 09/23/21 22:45 09/23/21 21:03 97 09/23/21 21:00 09/23/21 20:58 96 09/23/21 20:53 97 09/23/21 20:48 97 09/23/21 20:43 97 09/23/21 20:38 96 09/23/21 20:36 09/23/21 20:33 96 09/23/21 20:28 97 09/23/21 20:23 97 09/23/21 20:18 96 09/23/21 20:13 96 09/23/21 20:08 96 09/23/21 20:03 96 09/23/21 20:00 97 09/23/21 19:58 96 09/23/21 19:53 97 09/23/21 19:48 96 09/23/21 19:43 95
[2021-09-24] MEDS: DOCUSATE SODIUM 100 MG CAP PO SCH ×2 (08:00→20:44)
[2021-09-24] MEDS: POLYETHYLENE (MIRALAX) 17 GM PACK PO PRN (09:19)
[2021-09-24] MEDS ORDERED: LABETALOL HCL 300 MG TAB PO SCH (14:00)
[2021-09-24] MEDS: GLYCERIN ADULT 12 SUPP/BOX SUPP PR PRN (15:00)
--- NOTE | 2021-09-24 15:00 | Consultation ---
Date of Consultation September 24, 2021 Assessment & Plan (1) Generalized anxiety disorder: Symptomatology most consistent with anxiety/panic attack -Numbness and tingling most consistent with carpopedal spasm Patient reports previous improvement with Lexapro as well as Lexapro with Lamictal -Previous episode of depression per patient Brief literature search demonstrates some benzodiazepine use would be indicated for anxiety and breast-feeding patients - https://pubmed.ncbi.nlm.nih.gov/53849718/ - https://pubmed.ncbi.nlm.nih.gov/43933991/ -Would consider Klonopin 0.5 mg twice daily as needed as needed for acute panic attack Given recent life changes, medical issues, prior history of depression it may be prudent to have psychiatry consult for additional medication management -Patient does not currently follow with mental health professional is receiving Lexapro from primary care provider - Patient is agreeable with mental health evaluation for possible help with medication management and breast-feeding Chest pain and symptoms have resolved this is highly unlikely to have a cardiac or thromboembolic origin -Consideration also could include aortic dissection she does not have any significant risk factors of Eloise-Danlos or connective tissue disease disorders - If the patient were to have recurrent chest pain I would obtain an EKG as well as chest x-ray and consider trending troponins -I believe pulmonary embolism is rather unlikely and risk of radiation to breast tissue outweighs the benefits given low clinical concern/pretest probability - No role for D-dimer testing given recent vaginal delivery (2) Preeclampsia: Agree with labetalol for blood pressure management -Would consider daily magnesium supplementation which may have an effect on blood pressure as well as headaches given reported history of migraines in the past (3) Insulin controlled gestational diabetes mellitus (GDM) during : Encourage follow-up with primary care provider for outpatient follow-up and management (4) Gestational hypertension: History of Present Illness Requesting Physician: Gianluca Reason for Consultation: Chest pain, anxiety Attending Physician: Roxi Patrick MD History of Present Illness Patient is a 31-year-old female, G3, P3 who had a spontaneous vaginal delivery on September 16, 2021, whose was complicated with Gestational hypertension, preeclampsia, insulin controlled gestational diabetes mellitus as well as polyhydramnios, Patient's significant past medical and history includes migraines, anxiety and depression And depression requiring hospitalization secondary to concerns for self injures behavior, And panic attacks who earlier this morning had which she felt was similar to her prior episode of a panic attack. During this episode she felt uncomfortable, was experiencing chest pain without radiation, she had numbness and tingling in her distal extremities and some cramping of the upper extremities. She denied perioral anesthesias, no change in vision, felt like there was a racing heart. This episode lasted for approximately 30 minutes and improved as she was talking with the bedside nurse and has since resolved.She admits to feeling anxious and is somewhat fidgety. She has had her anxiety was controlled with medications including Lexapro and Lamictal. During her second she was discontinued from the Lamictal and was restarted on Lexapro she has felt that the Lexapro as a single agent has provided adequate relief of her anxiety and depression previously. Patient was having headaches with her elevated blood pressures. She was previously placed on metoprolol for control of blood pressure as well as anxiety. At one point she was on Lamictal Lexapro and metoprolol and the combination made her blood pressure too low and at that point to discontinue the metoprolol. When she would check her blood pressures as an outpatient she would routinely be 120 systolic without additional medications. Patient reports her grandfather suffered and a intracranial hemorrhage after excessive straining with a bowel movement, she is concerned as she has had fairly significant hemorrhoids that have complicated this as well. Allergies Allergy/AdvReac Type Severity Reaction Status Date / Time Sulfa (Sulfonamide Allergy Intermediate Hives Verified 09/22/21 10:46 Antibiotics) Home Medications Medication Instructions Recorded Confirmed Type escitalopram oxalate 10 mg tablet 15 mg PO HS 10/29/19 09/22/21 History cyclobenzaprine 5 mg tablet 5 mg PO DAILY PRN 08/17/20 09/22/21 History magnesium oxide 400 mg PO BID 04/01/21 09/22/21 History riboflavin (vitamin B2) 400 mg 400 mg PO DAILY 04/01/21 09/22/21 History tablet hydrocortisone-pramoxine 2.5 %-1 % 1 applic SD QID PRN #30 g 09/20/21 09/22/21 Rx rectal cream (Analpram-HC) labetalol 200 mg tablet 200 mg PO BID #60 tab 09/22/21 09/22/21 Rx Patient History Medical History 38 weeks gestation of Anxiety Bipolar 1 disorder Chronic back pain Depression Fibroadenoma of left breast Removed ~3 years ago Heart murmur does not follow with cardio; no previous echo History of chicken pox Hypertension Chronic Hypertension prior to ; was on Metoprolol in past but bipolar meds lowered her BP. Insulin controlled gestational diabetes mellitus (GDM) during Migraines Suicidal ideations several in past; last ideation was May 2018- pt was hospitalized. Pt says it is situational and this past incident was relationship related. Pt says this is better now. Surgical History H/O tooth extraction H/O wisdom tooth extraction History of breast surgery removal fibroadenoma left breast History of cholecystectomy History of colonoscopy History of tooth extraction Hx of lumbar discectomy December 2016 Family History Father Hypertension Stroke Mother Lung cancer Other Family history non-contributory Denies family history of Colon cancer Ovarian cancer Prostate cancer Breast cancer Social History Smoking Status: Never smoker Second Hand Exposure: No; Do You Dip or Chew Tobacco: No; Tobacco Cessation Education Requested by Patient: No Hx Alcohol Use: No Hx Substance Use: No Preferred Language: Yakut Communication Ability: Effective Visual Impairment: No Limitations Hearing Ability: Normal Pi/[employer] Research [employer] Required: No Beliefs That Will Affect Care: None marital status: marital status details: FOB: Sathya Meadows (29) [phone] Current Living Situation: Alone Current Living Situation Comment: lives with FOB, son and daughter. 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 Physical Exam Physical Exam: General: Alert. nontoxic. Anxious Skin: Warm, dry, Head: Atraumatic Ears, nose, mouth and throat: airway patent Cardiovascular: Normal peripheral perfusion , S1-S2 regular rate and rhythm no murmurs rubs gallops Respiratory: no respiratory distress Gastrointestinal: Non distended , Fundus not palpable Musculoskeletal: No deformity Neuro:No gross motor deficits, deep tendon reflexes 2+/4, No clonus Results & Data ([facility]) Vital Signs (Past 12 Hours) Vital Signs Temp Pulse Resp BP BP Pulse Ox 09/24/21 13:50 79 159/96 H 09/24/21 11:05 37.1 C 91 H 22 150/92 H 98 09/24/21 09:15 150/90 H 09/24/21 07:35 36.7 C 79 20 171/108 H 166/109 H 97 09/24/21 04:00 36.9 C 79 16 150/99 H 97 Medications Administered Medication List Acetaminophen (Acetaminophen 500 Mg Tab) 1,000 mg PO Q6H PRN PRN Reason: Fever or headache Stop: 10/22/21 21:28 Last Admin: 09/24/21 09:19 Dose: 1,000 mg Documented by: [id number] Admin: 09/24/21 01:54 Dose: 1,000 mg Documented by: [id number] Admin: 09/23/21 14:30 Dose: 1,000 mg Documented by: [id number] Admin: 09/23/21 07:30 Dose: 1,000 mg Documented by: [id number] Admin: 09/22/21 23:42 Dose: 1,000 mg Documented by: [id number] Acetaminophen/Butalbital/Caffeine (Butalbital/Acetamin/Caffeine Tab) 1 tab PO Q4H PRN PRN Reason: Headache Stop: 10/23/21 03:59 Last Admin: 09/23/21 04:55 Dose: 1 tab Documented by: [id number] Cyclobenzaprine HCl (Cyclobenzaprine Hcl 10 Mg Tab) 10 mg PO Q8H PRN PRN Reason: Headache or Pain Stop: 10/23/21 14:44 Last Admin: 09/24/21 10:06 Dose: 10 mg Documented by: [id number] Docusate Sodium (Docusate Sodium 100 Mg Cap) 100 mg PO BID TRAVIS Stop: 10/23/21 20:59 Last Admin: 09/24/21 08:00 Dose: 100 mg Documented by: [id number] Admin: 09/23/21 20:42 Dose: 100 mg Documented by: [id number] Admin: 09/23/21 11:25 Dose: 100 mg Documented by: [id number] Escitalopram Oxalate (Escitalopram Oxalate 10 Mg Tab) 15 mg PO HS TRAVIS Stop: 10/23/21 20:59 Last Admin: 09/23/21 21:27 Dose: 15 mg Documented by: [id number] Glycerin (Glycerin Adult 12 Supp/Box Supp) 1 supp SD DAILY PRN PRN Reason: Constipation Stop: 10/23/21 20:16 Last Admin: 09/23/21 20:43 Dose: 1 supp Documented by: [id number] Lactated Ringer's (Lr) 1,000 mls @ 75 mls/hr IV .[id number] TRAVIS Stop: 10/22/21 20:44 Last Infusion: 09/23/21 21:14 Dose: 0 mls/hr Documented by: [id number] Admin: 09/23/21 09:29 Dose: 75 mls/hr Documented by: [id number] Infusion: 09/23/21 09:29 Dose: 75 mls/hr Documented by: [id number] Infusion: 09/23/21 01:18 Dose: 75 mls/hr Documented by: [id number] Infusion: 09/22/21 23:30 Dose: 75 mls/hr Documented by: [id number] Infusion: 09/22/21 22:30 Dose: 75 mls/hr Documented by: [id number] Infusion: 09/22/21 21:30 Dose: 75 mls/hr Documented by: [id number] Admin: 09/22/21 21:00 Dose: 125 mls/hr Documented by: [id number] Magnesium Sulfate (Magnesium Sulfate / Wtr) 40 gm in 1,000 mls @ 50 mls/hr IV .Q20H TRAVIS Stop: 10/22/21 20:59 Last Infusion: 09/23/21 21:14 Dose: 0 mls/hr Documented by: [id number] Cosigned by: [id number] Infusion: 09/23/21 19:16 Dose: 50 mls/hr Documented by: [id number] Cosigned by: [id number] Admin: 09/23/21 12:58 Dose: 50 mls/hr Documented by: [id number] Cosigned by: [id number] Infusion: 09/23/21 12:58 Dose: 50 mls/hr Documented by: [id number] Cosigned by: [id number] Infusion: 09/23/21 05:30 Dose: 50 mls/hr Documented by: [id number] Cosigned by: [id number] Infusion: 09/23/21 04:30 Dose: 50 mls/hr Documented by: [id number] Cosigned by: [id number] Infusion: 09/23/21 03:30 Dose: 50 mls/hr Documented by: [id number] Cosigned by: [id number] Infusion: 09/23/21 02:30 Dose: 50 mls/hr Documented by: [id number] Cosigned by: [id number] Infusion: 09/23/21 01:18 Dose: 50 mls/hr Documented by: [id number] Cosigned by: [id number] Infusion: 09/22/21 23:30 Dose: 50 mls/hr Documented by: [id number] Cosigned by: [id number] Infusion: 09/22/21 22:30 Dose: 50 mls/hr Documented by: [id number] Cosigned by: [id number] Infusion: 09/22/21 21:30 Dose: 50 mls/hr Documented by: [id number] Cosigned by: [id number] Admin: 09/22/21 21:01 Dose: 300 mls/hr Documented by: [id number] Cosigned by: [id number] Ibuprofen (Ibuprofen 600 Mg Tab) 600 mg PO Q6H PRN PRN Reason: Headache Stop: 10/22/21 21:28 Last Admin: 09/24/21 14:00 Dose: 600 mg Documented by: [id number] Admin: 09/24/21 07:10 Dose: 600 mg Documented by: [id number] Admin: 09/23/21 20:41 Dose: 600 mg Documented by: [id number] Admin: 09/23/21 14:29 Dose: 600 mg Documented by: [id number] Admin: 09/23/21 07:29 Dose: 600 mg Documented by: [id number] Admin: 09/23/21 01:38 Dose: 600 mg Documented by: [id number] Labetalol HCl (Labetalol Hcl 300 Mg Tab) 300 mg PO Q8 TRAVIS Stop: 10/24/21 13:59 Last Admin: 09/24/21 14:00 Dose: 300 mg Documented by: [id number] Polyethylene Glycol (Polyethylene (Miralax) 17 Gm Pack) 17 gm PO DAILY PRN PRN Reason: Constipation Stop: 10/24/21 08:54 Last Admin: 09/24/21 09:19 Dose: 17 gm Documented by: [id number] Rizatriptan Benzoate (Rizatriptan Benzoate 10 Mg Tab) 10 mg PO Q6H PRN PRN Reason: Headache Stop: 10/23/21 10:16 Last Admin: 09/23/21 20:42 Dose: 10 mg Documented by: [id number] Admin: 09/23/21 11:26 Dose: 10 mg Documented by: [id number] Discontinued Medications Cyclobenzaprine HCl (Cyclobenzaprine Hcl 10 Mg Tab) 10 mg PO BID PRN PRN Reason: Headache or Pain Stop: 10/23/21 14:44 Last Admin: 09/23/21 15:14 Dose: 10 mg Documented by: [id number] Diphenhydramine HCl (Diphenhydramine Capsule 25 Mg Cap) 25 mg PO NOW ONE Stop: 09/23/21 02:43 Last Admin: 09/23/21 02:52 Dose: 25 mg Documented by: [id number] Ibuprofen (Ibuprofen 600 Mg Tab) Confirm Administered Dose 600 mg PO .STK-MED ONE Stop: 09/22/21 21:19 Last Admin: 09/22/21 21:21 Dose: 600 mg Documented by: [id number] Labetalol HCl (Labetalol Hcl Iv 5 Mg/Ml 20ml) 20 mg IV ONCE STA Stop: 09/22/21 20:45 Last Admin: 09/22/21 20:54 Dose: 20 mg Documented by: [id number] Cosigned by: [id number] Labetalol HCl (Labetalol Hcl Iv 5 Mg/Ml 20ml) 20 mg IV NOW STA Stop: 09/22/21 21:28 Last Admin: 09/22/21 21:20 Dose: 20 mg Documented by: [id number] Cosigned by: [id number] Labetalol HCl (Labetalol Hcl 100 Mg Tab) 200 mg PO Q8 TRAVIS Stop: 10/22/21 21:59 Last Admin: 09/23/21 13:59 Dose: 200 mg Documented by: [id number] Admin: 09/23/21 05:55 Dose: 200 mg Documented by: [id number] Admin: 09/22/21 22:11 Dose: 200 mg Documented by: [id number] Labetalol HCl (Labetalol Hcl 200 Mg Tab) 200 mg PO Q8H TRAVIS Stop: 10/23/21 22:59 Last Admin: 09/24/21 06:01 Dose: 200 mg Documented by: [id number] Admin: 09/23/21 23:12 Dose: 200 mg Documented by: [id number] Labetalol HCl (Labetalol Hcl 100 Mg Tab) 100 mg PO ONE ONE Stop: 09/24/21 07:46 Last Admin: 09/24/21 08:00 Dose: 100 mg Documented by: [id number] Sodium Biphosphate/Sodium Phosphate (Sod Phosphate/Sod Biphosphate Enema 132 Ml Btl) 132 ml SD NOW ONE Stop: 09/24/21 01:52 Last Admin: 09/24/21 01:51 Dose: 132 ml Documented by: [id number] Sodium Biphosphate/Sodium Phosphate (Sod Phosphate/Sod Biphosphate Enema 132 Ml Btl) Confirm Administered Dose 132 ml SD .STK-MED ONE Stop: 09/24/21 01:54 Last Admin: 09/24/21 05:51 Dose: Not Given Documented by: [id number] Vital Signs (Past 12 Hours) Vital Signs Temp Pulse Resp BP BP Pulse Ox 09/24/21 13:50 79 159/96 H 09/24/21 11:05 37.1 C 91 H 22 150/92 H 98 09/24/21 09:15 150/90 H 09/24/21 07:35 36.7 C 79 20 171/108 H 166/109 H 97 09/24/21 04:00 36.9 C 79 16 150/99 H 97 Lab & Micro Results (Past 24 Hours) No Data to Display No Data to Display No Data to Display I & O Totals 24 Hours 09/23/21 09/24/21 09/25/21 06:59 06:59 06:59 Intake Total 3142.5 / 3142.5 2868.333 / 2868.333 Output Total 5300 / 5300 3650 / 3650 Balance -2157.5 / -2157.5 -781.667 / -781.667 Cumulative 09/22/21 19:59 thru 09/24/21 01:09 Intake Total 6010.833 Output Total 8950 Balance -2939.167 RT Ventilator Mngmt (Last Documented) Ventilator Ordered Settings Respiratory Rate 22 09/24/21 11:05 Ventilator - PT Measurements Respiratory Rate
--- NOTE | 2021-09-24 15:30 | Psychiatric Consultation ---
Date of Consultation September 24, 2021 Impression / Recommendations Impression 31 yo female with a history of depression (possible bipolar hypomania in past), exacerbation of baseline anxiety in the period. (1) Generalized anxiety disorder: progress developer to consider thyroid telephone sales representative for post depression in outpatient setting, [place] depression scale could be helpful at f/u appts liaison to have her sign ROIs so consult can go to therapist and provide information about psychiatry resources ([facility] main psychiatric provider accepting patients) in meantime, Pcp has been managing Lexapro--would recommend increase to 20 mg she hopes to avoid prns given but has benefit from low dose Atarax in the past. there is no indication for inpatient hospitalization Risk Factors Assessment Do You Have Access To A Gun?: No Psych History Identifying Data Ebony is 31 yo female from [place], admit for management of BLEVINS and BP due to preeclampsia s/p . She has a history of depression and anxiety, last seen by our service following delivery of her last child in 2018 (now 3 yo). Consult is for depression/anxiety by Dr. Martin. Chief Complaint "I had like a 6 hr panic attack and that's the worst one I've had in a while". History of Present Illness Reports anxiety over her BP and all of the things she "should" be doing at home. It is difficult for her to be from her but she is also "super worried about germs". She states that during the panic episode she had subjective tach, tightness across her chest and hyperventilating as she was try ing to text and her hands went into carpopedal spasm. She notices the "baby blues" in that not interested in much, like tv and wishes she was as would take her mind off of things. For example, she has been very focussed on not having cross contamination in the refrigerator with her breast milk and "probably over doing it" on breast pump cleaning due to concerns about contamination. Her has been giving the baby some formula to supplement and she just saw a recall due to Cronobacter, only reinforcing her need to worry. She is also overly focussed on the baby's skin as seemed to be having a reaction to disposable diapers. She reports not feeling as prepared for this baby as had to leave work on med surg a few days early. She also had "alot" with work and managing her gestational diabetes/insulin and "now I'm here". She mentioned wanting to start to see her therapist again, Bucky Valdivia (spelling?). He is from when she lived in [place] and they have been having telehealth sessions on/off since. Past Psychiatric History Previous Psych History: carries a bipolar II diagnosis but any periods of hypomania were previously noted as stimulant induced perhaps. She denies any manic or psychotic episodes and relates her mood has been stable on Lexapro for the past 3 years. Outpatient Services: none currently, wants to call her therapist on her own Previous Psych Admissions: 2009--[facility]; 2016--OD attempt, 2018 [facility] suicidal amidst relationship stressor. Do You Have Access To A Gun?: No History of Previous Suicide Attempt: Yes Past Medication Trials: Zoloft, Lexapro, mirtazapine, lamictal Allergies Allergy/AdvReac Type Severity Reaction Status Date / Time Sulfa (Sulfonamide Allergy Intermediate Hives Verified 09/22/21 10:46 Antibiotics) Home Medications Medication Instructions Recorded Confirmed Type escitalopram oxalate 10 mg tablet 15 mg PO HS 10/29/19 09/22/21 History cyclobenzaprine 5 mg tablet 5 mg PO DAILY PRN 08/17/20 09/22/21 History magnesium oxide 400 mg PO BID 04/01/21 09/22/21 History riboflavin (vitamin B2) 400 mg 400 mg PO DAILY 04/01/21 09/22/21 History tablet hydrocortisone-pramoxine 2.5 %-1 % 1 applic NE QID PRN #30 g 09/20/21 09/22/21 Rx rectal cream (Analpram-HC) labetalol 200 mg tablet 200 mg PO BID #60 tab 09/22/21 09/22/21 Rx Family History mother and sister with depression and anxiety; mother with Etoh; pat aunt with remote hx of suicide attempt Personal History Born In: [place] 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 Insulin controlled gestational diabetes mellitus (GDM) during Migraines Suicidal ideations several in past; last ideation was May 2018- pt was hospitalized. Pt says it is situational and this past incident was relationship related. Pt says this is better now. Surgical History H/O tooth extraction H/O wisdom tooth extraction History of breast surgery removal fibroadenoma left breast History of cholecystectomy History of colonoscopy History of tooth extraction Hx of lumbar discectomy December 2016 Family History Father Hypertension Stroke Mother Lung cancer Other Family history non-contributory Denies family history of Colon cancer Ovarian cancer Prostate cancer Breast cancer Social History Smoking Status: Never smoker Second Hand Exposure: No; Do You Dip or Chew Tobacco: No; Tobacco Cessation Education Requested by Patient: No Hx Alcohol Use: No Hx Substance Use: No Preferred Language: Lao Communication Ability: Effective Visual Impairment: No Limitations Hearing Ability: Normal Loan Operations Specialist Required: No Beliefs That Will Affect Care: None marital status: marital status details: FOB: Sathya Meadows (29) [phone] Current Living Situation: Alone Current Living Situation Comment: lives with FOB, son and daughter. 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 [employer] Feels Safe at Home: Yes Safety Concerns: Feels Safe At This Time Assistive Devices: None Physical Exam Psychiatric: Orientation: alert and oriented x 3 Apperance: appropriately groomed Eye Contact: good eye contact Motor Behavior: no abnormal motor movements Speech: normal rate/rhythm/volume of speech Affect: + depressed affect Mood: + anxious mood Thought Process: goal directed thought process Thought Content: reality based without delusions Suicidal Thoughts: denies suicidal thoughts Homicidal Thoughts: denies homicidal thoughts Hallucinations: no auditory hallucinations and no visual hallucinations Cognition: attention grossly intact and language grossly intact Estimated Intelligence: consistent with education level Insight: good insight Judgement: good judgement Vital Signs (Past 24 Hours): Last Vital Signs Temp 37.1 C 09/24/21 11:05 Pulse 79 09/24/21 13:50 Resp 22 09/24/21 11:05 BP 159/96 H 09/24/21 13:50 Pulse Ox 98 09/24/21 11:05 Review of Systems All systems reviewed & are unremarkable except as noted in HPI & below Results & Data (PSY) Laboratory Results Labs 09/22/21 09/22/21 09/22/21 20:30 20:51 20:51 WBC 10.72 RBC 4.04 L Hgb 10.7 L Hct 33.2 L MCV 82.2 MCH 26.5 MCHC 32.2 RDW Std Deviation 43.9 RDW Coeff of Renee 15.3 H Plt Count 336 MPV 9.0 Immature Gran % (Auto) 0.5 Neut % (Auto) 65.1 Lymph % (Auto) 26.0 Baca % (Auto) 6.9 Eos % (Auto) 1.1 Baso % (Auto) 0.4 Neut # (Auto) 6.98 H Lymph # (Auto) 2.79 Baca # (Auto) 0.74 H Eos # (Auto) 0.12 Baso # (Auto) 0.04 Immature Gran # (Auto) 0.05 H Sodium 137 Potassium 3.5 Chloride 107 Carbon Dioxide 23 Anion Gap 7 BUN 13 Creatinine 0.57 L Est Cr Clr Drug Dosing 128.1 Est GFR ( Amer) 142.2 Est GFR (Non-Af Amer) 122.7 BUN/Creatinine Ratio 22.8 H Glucose 94 Calcium 8.6 Total Bilirubin 0.2 AST 21 ALT 29 Alkaline Phosphatase 126 H Total Protein 6.3 Albumin 3.3 L Globulin 3.0 Albumin/Globulin Ratio 1.1 Ur Random Creatinine 45.5 U Random Total Protein 13.9 H Protein/Creatinin Ratio 0.3 H SARS-CoV-2, RNA, NAAT 09/22/21 21:30 WBC RBC Hgb Hct MCV MCH MCHC RDW Std Deviation RDW Coeff of Renee Plt Count MPV Immature Gran % (Auto) Neut % (Auto) Lymph % (Auto) Baca % (Auto) Eos % (Auto) Baso % (Auto) Neut # (Auto) Lymph # (Auto) Baca # (Auto) Eos # (Auto) Baso # (Auto) Immature Gran # (Auto) Sodium Potassium Chloride Carbon Dioxide Anion Gap BUN Creatinine Est Cr Clr Drug Dosing Est GFR ( Amer) Est GFR (Non-Af Amer) BUN/Creatinine Ratio Glucose Calcium Total Bilirubin AST ALT Alkaline Phosphatase Total Protein Albumin Globulin Albumin/Globulin Ratio Ur Random Creatinine U Random Total Protein Protein/Creatinin Ratio SARS-CoV-2, RNA, NAAT NEGATIVE Medications Administered Acetaminophen (Acetaminophen 500 Mg Tab) 1,000 mg PO Q6H PRN PRN Reason: Fever or headache Stop: 10/22/21 21:28 Last Admin: 09/24/21 09:19 Dose: 1,000 mg Documented by: [id number] Admin: 09/24/21 01:54 Dose: 1,000 mg Documented by: [id number] Admin: 09/23/21 14:30 Dose: 1,000 mg Documented by: [id number] Admin: 09/23/21 07:30 Dose: 1,000 mg Documented by: [id number] Admin: 09/22/21 23:42 Dose: 1,000 mg Documented by: [id number] Acetaminophen/Butalbital/Caffeine (Butalbital/Acetamin/Caffeine Tab) 1 tab PO Q4H PRN PRN Reason: Headache Stop: 10/23/21 03:59 Last Admin: 09/23/21 04:55 Dose: 1 tab Documented by: [id number] Cyclobenzaprine HCl (Cyclobenzaprine Hcl 10 Mg Tab) 10 mg PO Q8H PRN PRN Reason: Headache or Pain Stop: 10/23/21 14:44 Last Admin: 09/24/21 10:06 Dose: 10 mg Documented by: [id number] Docusate Sodium (Docusate Sodium 100 Mg Cap) 100 mg PO BID TRAVIS Stop: 10/23/21 20:59 Last Admin: 09/24/21 08:00 Dose: 100 mg Documented by: [id number] Admin: 09/23/21 20:42 Dose: 100 mg Documented by: [id number] Admin: 09/23/21 11:25 Dose: 100 mg Documented by: [id number] Escitalopram Oxalate (Escitalopram Oxalate 10 Mg Tab) 15 mg PO HS TRAVIS Stop: 10/23/21 20:59 Last Admin: 09/23/21 21:27 Dose: 15 mg Documented by: [id number] Glycerin (Glycerin Adult 12 Supp/Box Supp) 1 supp NE DAILY PRN PRN Reason: Constipation Stop: 10/23/21 20:16 Last Admin: 09/23/21 20:43 Dose: 1 supp Documented by: [id number] Lactated Ringer's (Lr) 1,000 mls @ 75 mls/hr IV .[id number] TRAVIS Stop: 10/22/21 20:44 Last Infusion: 09/23/21 21:14 Dose: 0 mls/hr Documented by: [id number] Admin: 09/23/21 09:29 Dose: 75 mls/hr Documented by: [id number] Infusion: 09/23/21 09:29 Dose: 75 mls/hr Documented by: [id number] Infusion: 09/23/21 01:18 Dose: 75 mls/hr Documented by: [id number] Infusion: 09/22/21 23:30 Dose: 75 mls/hr Documented by: [id number] Infusion: 09/22/21 22:30 Dose: 75 mls/hr Documented by: [id number] Infusion: 09/22/21 21:30 Dose: 75 mls/hr Documented by: [id number] Admin: 09/22/21 21:00 Dose: 125 mls/hr Documented by: [id number] Magnesium Sulfate (Magnesium Sulfate / Wtr) 40 gm in 1,000 mls @ 50 mls/hr IV .Q20H TRAVIS Stop: 10/22/21 20:59 Last Infusion: 09/23/21 21:14 Dose: 0 mls/hr Documented by: [id number] Cosigned by: [id number] Infusion: 09/23/21 19:16 Dose: 50 mls/hr Documented by: [id number] Cosigned by: [id number] Admin: 09/23/21 12:58 Dose: 50 mls/hr Documented by: [id number] Cosigned by: [id number] Infusion: 09/23/21 12:58 Dose: 50 mls/hr Documented by: [id number] Cosigned by: [id number] Infusion: 09/23/21 05:30 Dose: 50 mls/hr Documented by: [id number] Cosigned by: [id number] Infusion: 09/23/21 04:30 Dose: 50 mls/hr Documented by: [id number] Cosigned by: [id number] Infusion: 09/23/21 03:30 Dose: 50 mls/hr Documented by: [id number] Cosigned by: [id number] Infusion: 09/23/21 02:30 Dose: 50 mls/hr Documented by: [id number] Cosigned by: [id number] Infusion: 09/23/21 01:18 Dose: 50 mls/hr Documented by: [id number] Cosigned by: [id number] Infusion: 09/22/21 23:30 Dose: 50 mls/hr Documented by: [id number] Cosigned by: [id number] Infusion: 09/22/21 22:30 Dose: 50 mls/hr Documented by: [id number] Cosigned by: [id number] Infusion: 09/22/21 21:30 Dose: 50 mls/hr Documented by: [id number] Cosigned by: [id number] Admin: 09/22/21 21:01 Dose: 300 mls/hr Documented by: [id number] Cosigned by: [id number] Ibuprofen (Ibuprofen 600 Mg Tab) 600 mg PO Q6H PRN PRN Reason: Headache Stop: 10/22/21 21:28 Last Admin: 09/24/21 14:00 Dose: 600 mg Documented by: [id number] Admin: 09/24/21 07:10 Dose: 600 mg Documented by: [id number] Admin: 09/23/21 20:41 Dose: 600 mg Documented by: [id number] Admin: 09/23/21 14:29 Dose: 600 mg Documented by: [id number] Admin: 09/23/21 07:29 Dose: 600 mg Documented by: [id number] Admin: 09/23/21 01:38 Dose: 600 mg Documented by: [id number] Labetalol HCl (Labetalol Hcl 300 Mg Tab) 300 mg PO Q8 TRAVIS Stop: 10/24/21 13:59 Last Admin: 09/24/21 14:00 Dose: 300 mg Documented by: [id number] Polyethylene Glycol (Polyethylene (Miralax) 17 Gm Pack) 17 gm PO DAILY PRN PRN Reason: Constipation Stop: 10/24/21 08:54 Last Admin: 09/24/21 09:19 Dose: 17 gm Documented by: [id number] Rizatriptan Benzoate (Rizatriptan Benzoate 10 Mg Tab) 10 mg PO Q6H PRN PRN Reason: Headache Stop: 10/23/21 10:16 Last Admin: 09/23/21 20:42 Dose: 10 mg Documented by: [id number] Admin: 09/23/21 11:26 Dose: 10 mg Documented by: [id number] Coding Level of Care Code 07504 Inpt Consult Level 3 Diagnoses Generalized anxiety disorder F41.1
--- NOTE | 2021-09-24 16:26 | Communication Note ---
Date of Service: September 24, 2021 Agree with psych consultation recommendations, will increase Lexapro dose to 20mg qhs for anxiety/depression. Resident Activity Tracking Resident Involvement: Resident Care Provided Care Provided: OB Delivery
[2021-09-24] MEDS ORDERED: ESCITALOPRAM OXALATE 20 MG TAB PO SCH (21:00)
[2021-09-24] MEDS ORDERED: LABETALOL HCL 200 MG TAB PO SCH (22:00)
[2021-09-25] MEDS ORDERED: LABETALOL HCL 100 MG TAB PO ONE (04:36)
[2021-09-25] MEDS: POLYETHYLENE (MIRALAX) 17 GM PACK PO PRN (05:29)
[2021-09-25] MEDS: ACETAMINOPHEN 500 MG TAB PO PRN (06:47)
[2021-09-25] MEDS: LABETALOL HCL 300 MG TAB PO SCH ×2 (06:48→13:08)
--- NOTE | 2021-09-25 08:50 | Obstetrical Progress Note ---
Date of Service September 25, 2021 Assessment & Plan (1) Preeclampsia: 31yo with PP PIH s/p Mag. Doing well. BPs improving with new med dosing. Will plan for discharge this afternoon if BPs remain stable. PIH and med precautions reviewed. Plan for 1 week BP check. (2) Encounter for care and examination after delivery: Subjective Admitted for PP preeclampsia. S/p PP Mag. Patient doing well this am. Denies PIH symptoms. BPs have been persistently elevated until recent Labetalol dosing increase to 600mg BID. Physical Exam Gastrointestinal (Abdomen) Inspection/Auscultation: abdomen normal to inspection Percussion/Palpation: abdomen soft; abdomen nontender, no guarding and abdomen not rigid Results & Data ([facility]) Vital Signs (Past 12 Hours) Vital Signs Temp Pulse Resp BP BP 09/25/21 06:45 80 135/86 09/25/21 04:30 37.0 C 82 18 161/100 H 162/104 H 09/25/21 00:10 36.7 C 82 18 151/90 H 09/24/21 22:45 76 154/91 H
[2021-09-25] MEDS: DOCUSATE SODIUM 100 MG CAP PO SCH (09:32)
--- NOTE | 2021-09-25 11:35 | Hospitalist Consultation ---
Date of Consultation September 25, 2021 Assessment & Plan (1) Preeclampsia: Elevated BPs -Likely continuation of pre-eclampsia in period, also some component of baseline anxiety worsening -Agree with continuing labetalol 600mg TID on discharge until 1 week BP check, anticipate decreasing dose then -Unlikely to have primary cardiovascular etiology, but consider cardiac workup- EKG, troponins if symptoms recur including chest pain -Agree pt is safe for discharge today pending BPs remain stable and she is asymptomatic Anxiety -Lexapro 10 mg increased to 20 mg per PCP, this should help curtail anxiety which will also help normalize BPs (2) Generalized anxiety disorder: Supervising Physician Co-Signing Physician Notes I personally examined the patient and verified all bailey points of history and exam, discussed case, and agree with decision making with Dr Mtz feeling better vitals noted nad heent nc at mmm breathing unlabored no accessory muscles uncontrolled HTN -probably multifactorial w factors mostly centering on PIH and anxiety. ?baseline HTN possible but less likely -safe/stable for home from my perspective - rec'd daily to BID home BP monitoring - not due to concern of rises -- would be low risk for acute hypertensive complications - but monitor so that if PIH and anxiety factors lonny and BP starting to get lower she can see readings and get advice from PCP/OB on reducing labetalol if needed History of Present Illness Reason for Consultation: Elevated BPs Requesting Physician: MD Gianluca Attending Physician: Den Harp DO History of Present Illness 31 yo , on 09/16, PNI GHTN, PET w/o SF, GDMA2, PMH anxiety/depression, bipolar disorder, PPD, panic disorder presenting with acute panic attack. Associated chest pain, headache, numbness/tingling, sensation of fear. Symptoms resolved in 30 mins without intervention. Also has been having elevated BPs at home and persistent headache despite labetalol treatment, headaches occurring over past 1.5 weeks. Admission SBP 180s, received several doses labetalol and magnesium in OB unit with now normalizing BPs. Denies any acute complaints at this time, feels better. Allergies Allergy/AdvReac Type Severity Reaction Status Date / Time Sulfa (Sulfonamide Allergy Intermediate Hives Verified 09/22/21 10:46 Antibiotics) Home Medications Medication Instructions Recorded Confirmed Type cyclobenzaprine 5 mg tablet 5 mg PO DAILY PRN 08/17/20 09/22/21 History magnesium oxide 400 mg PO BID 04/01/21 09/22/21 History riboflavin (vitamin B2) 400 mg 400 mg PO DAILY 04/01/21 09/22/21 History tablet hydrocortisone-pramoxine 2.5 %-1 % 1 applic GA QID PRN #30 g 09/20/21 09/22/21 Rx rectal cream (Analpram-HC) escitalopram oxalate 20 mg tablet 20 mg PO HS #30 tab 09/25/21 Rx labetalol 300 mg tablet 600 mg PO Q8 #30 tab 09/25/21 Rx Patient History Medical History 38 weeks gestation of Anxiety Bipolar 1 disorder Chronic back pain Depression Fibroadenoma of left breast Removed ~3 years ago Heart murmur does not follow with cardio; no previous echo History of chicken pox Hypertension Chronic Hypertension prior to ; was on Metoprolol in past but bipolar meds lowered her BP. Insulin controlled gestational diabetes mellitus (GDM) during Migraines Suicidal ideations several in past; last ideation was May 2018- pt was hospitalized. Pt says it is situational and this past incident was relationship related. Pt says this is better now. Surgical History H/O tooth extraction H/O wisdom tooth extraction History of breast surgery removal fibroadenoma left breast History of cholecystectomy History of colonoscopy History of tooth extraction Hx of lumbar discectomy December 2016 Family History Father Hypertension Stroke Mother Lung cancer Other Family history non-contributory Denies family history of Colon cancer Ovarian cancer Prostate cancer Breast cancer Social History Smoking Status: Never smoker Second Hand Exposure: No; Hx Alcohol Use: No Hx Substance Use: No Preferred Language: Maori Communication Ability: Effective Visual Impairment: No Limitations Hearing Ability: Normal Drawer Upfitter Required: No Beliefs That Will Affect Care: None marital status: marital status details: FOB: Sathya Meadows (29) [phone] Current Living Situation: Alone Current Living Situation Comment: lives with FOB, son and daughter. 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 Safe at Home: Yes Assistive Devices: None Review of Systems Review of Systems: All systems reviewed & are unremarkable except as noted in HPI & below Physical Exam Physical Exam: General: well-appearing, no acute distress HEENT: PERRLA, moist mucous membranes, no LAD Resp: CTAB, unlabored respirations CV: RRR, normal S1, S2 Abd: soft, nontender, nondistended Neuro: no gross focal motor or sensory deficits Results & Data Results & Data ([facility]) Vital Signs (Past 12 Hours) Vital Signs Temp Pulse Resp BP BP 09/25/21 06:45 80 135/86 09/25/21 04:30 37.0 C 82 18 161/100 H 162/104 H 09/25/21 00:10 36.7 C 82 18 151/90 H Resident Activity Tracking Resident Involvement: Resident Care Provided Care Provided: Adult Hospital Medicine
[2021-09-25] MEDS: IBUPROFEN 600 MG TAB PO PRN (12:18)
--- NOTE | 2021-09-25 16:08 | Billing Data ---
Date of Service September 25, 2021 Coding Level of Care Code 93276 Subseq Obs Care Lvl 2 Comment disregard 232, entered in error
--- NOTE | 2021-09-25 16:08 | Billing Data ---
Date of Service September 25, 2021 Coding Level of Care Code 33116 Subseq Hosp Care Lvl 2
== END 2021-09-25 13:25 | disposition home or self-care (01) ==
LOC: OPB 19:59 → 4S2 19:59 → SUATTDRO 09-23 06:33